=== PATIENT | male | born 1990 | race Caucasian/White ===

== ENCOUNTER → 2018-06-21 10:17 | Outpatient (CLI) | payer OTHER, SELFPAY ==
[2018-06-21 11:34] LABS: Add Manual Diff / Slide Review NO; Basophils Absolute Auto 0 /uL (0-100); Basophils Percent Auto 0.7 % (0-2); Eosinophils Absolute Auto 200 /uL (0-450); Eosinophils Percent Auto 3.3 % (2-4); Hematocrit 47.7 % (41-53); Hemoglobin 16.1 g/dL (13.5-17.5); Lymphocytes Absolute Auto 2300 /uL (1100-4500); Lymphocytes Percent Auto 47.2 % (25-40); Mean Corpuscular HGB Conc 33.8 % (30-36); Mean Corpuscular Hemoglobin 29.5 PG (26-34); Mean Corpuscular Volume 87.3 fL (80-100); Monocytes Absolute Auto 400 /uL (0-900); Monocytes Percent Auto 9.3 % (3-14); Neutrophils Absolute Auto 1900 /uL (1500-7000); Neutrophils Percent Auto 39.5 % (50-75); Red Blood Cell Count 5.47 X10^6/uL (4.5-5.9); Red Cell Distribution Width 13.7 % (11.6-14.8); White Blood Cell Count 4.8 X10^3/uL (4.5-11.0)
[2018-06-21 11:53] LABS: Platelet Count 44 X10^3/uL (150-400)
[2018-06-21 12:12] LABS: BUN Creatinine Ratio 15.6 (6-22); Blood Urea Nitrogen 14 mg/dL (9-20); Calcium 9.6 mg/dL (8.4-10.2); Carbon Dioxide 29 mmol/L (22-32); Chloride 103 mmol/L (98-107); Estimated Glomerular Filt Rate > 60.0 mL/min (>60); Glucose 85 mg/dL (70-100); HEMOLYSIS 46 (0-50); Magnesium 2.3 mg/dL (1.6-2.3); Sodium 143 mmol/L (137-145)
[2018-06-21 12:37] LABS: TSH w/ Reflex to FT4 1.29 uIU/mL (0.47-4.68)
[2018-06-21 12:44] LABS: Alanine Aminotransferase 33 IU/L (21-72); Albumin 5.1 g/dL (3.5-5.0); Albumin Globulin Ratio 1.5 (1.0-2.8); Alkaline Phosphatase 49 U/L (38-126); Aspartate Aminotransferase 27 IU/L (17-59); BUN Creatinine Ratio 15.6 (6-22); Blood Urea Nitrogen 14 mg/dL (9-20); Calcium 9.6 mg/dL (8.4-10.2); Carbon Dioxide 27 mmol/L (22-32); Chloride 103 mmol/L (98-107); Estimated Glomerular Filt Rate > 60.0 mL/min (>60); Globulin 3.3 g/dL (1.7-4.1); Glucose 84 mg/dL (70-100); HEMOLYSIS 45 (0-50); Potassium 5.1 mmol/L (3.4-5.1); Sodium 142 mmol/L (137-145); Total Protein 8.4 g/dL (6.3-8.2)
== END ==
PROVIDERS: PCP Family Medicine; Visit Provider Registered Nurse
DX: R00.2 Palpitations (principal)
CPT/HCPCS: 36415; 80048; 80053; 83735; 84443; 85025

== ENCOUNTER → 2018-06-26 17:04 | Outpatient (CLI) | payer OTHER, SELFPAY ==
[2018-06-26 18:03] LABS: Add Manual Diff / Slide Review NO; Basophils Absolute Auto 0 /uL (0-100); Basophils Percent Auto 0.5 % (0-2); Eosinophils Absolute Auto 200 /uL (0-450); Eosinophils Percent Auto 2.6 % (2-4); Hematocrit 42.3 % (41-53); Hemoglobin 14.4 g/dL (13.5-17.5); Lymphocytes Absolute Auto 2400 /uL (1100-4500); Lymphocytes Percent Auto 37.5 % (25-40); Mean Corpuscular HGB Conc 34.1 % (30-36); Mean Corpuscular Hemoglobin 29.7 PG (26-34); Mean Corpuscular Volume 87.1 fL (80-100); Monocytes Absolute Auto 600 /uL (0-900); Monocytes Percent Auto 8.9 % (3-14); Neutrophils Absolute Auto 3200 /uL (1500-7000); Neutrophils Percent Auto 50.5 % (50-75); Platelet Count 223 X10^3/uL (150-400); Red Blood Cell Count 4.85 X10^6/uL (4.5-5.9); Red Cell Distribution Width 13.7 % (11.6-14.8); White Blood Cell Count 6.3 X10^3/uL (4.5-11.0)
== END ==
PROVIDERS: PCP Family Medicine; Visit Provider Registered Nurse
DX: D69.6 Thrombocytopenia, unspecified (principal)
CPT/HCPCS: 36415; 85025

== ENCOUNTER → 2018-07-01 09:32 | Outpatient (CLI) | payer OTHER, SELFPAY ==
--- NOTE | 2018-07-17 10:48 | P.HOLT.S_ITS ---
Life Skills Teacher Report Referral & Results Date Patient Seen: 07/01/18 Requesting provider: Meenu Cooper Indication: Palpitations Duration of monitoring (days): 10 Diary information: Patient had no diary entries recorded There 14 patient triggered events associated with sinus rhythm, PVCs, ventricular trigeminy, and a short run of ventricular tachycardia Data: Minimum heart rate was 39 beats per minute at 04:29 on 07/05/2018 Maximum sinus heart rate was 160 beats per minute at 17:40 on 07/03/2018 Maximum overall heart rate was 171 beats per minute at 17:11 on 07/02/2018 during a 4 beat run of ventricular tachycardia 1% of identified beats were PVCs including a 7.2nd run of ventricular trigeminy. Less than 1% of identified beats were supraventricular ectopic in origin The patient only had the single 4 beat run of VT Impression: This study seems to show patient's reported symptoms are more likely than not associated with ventricular dysrhythmias as above. Clinical correlation suggested
== END ==
PROVIDERS: PCP Family Medicine; Visit Provider Registered Nurse
DX: R00.2 Palpitations (principal)
CPT/HCPCS: 0296T; 0298T

== ENCOUNTER → 2018-07-02 09:45 | Outpatient (CLI) | payer OTHER, SELFPAY ==
--- NOTE | 2018-07-02 09:46 | DI.US.S_ITS ---
PROCEDURE: US SCROTUM INDICATIONS: testicular pain TECHNIQUE: Real-time scanning was performed of the scrotum and testicles, with image documentation. Color and pulse Doppler interrogation was performed of both testicles. COMPARISON: None. FINDINGS: Right: Testicle is normal in size at 2.6 x 3.3 x 4.9 cm, and homogenous in echotexture. Epididymis is normal in overall size and morphology. No hydrocele or varicoceles. Overlying scrotal skin is normal in thickness. Note is made of a right epididymal cyst measuring up to 1.1 cm. Left: Testicle is normal in size at 2.3 x 3.6 x 5.3 cm, and homogeneous in echotexture. Epididymis is normal in overall size and morphology. No hydrocele or varicoceles. Overlying scrotal skin is normal in thickness. The left epididymis is asymmetrically prominently thickened at 7.5 cm with hyperemia and heterogeneity consistent with epididymitis. Doppler: Color and pulse Doppler demonstrate normal and symmetric arterial flow in both testicles. IMPRESSION: Left epididymitis, with hyperemia and heterogeneity but no sign of orchitis bilaterally or underlying testicular neoplasm. No hydrocele is found. Dictated by: Wally El M.D. on 07/02/2018 at 11:08 Approved by: Wally El M.D. on 07/02/2018 at 11:09
== END ==
PROVIDERS: PCP Family Medicine; Visit Provider Physician Assistant
DX: N50.819 Testicular pain, unspecified (principal); N45.1 Epididymitis; R68.89 Other general symptoms and signs
CPT/HCPCS: 76870

== ENCOUNTER → 2018-10-29 13:38 | Outpatient (CLI) | payer OTHER, SELFPAY | PROVIDERS: PCP Family Medicine; Visit Provider Physician Assistant | DX: J02.9 Acute pharyngitis, unspecified (principal) | CPT/HCPCS: 87070 ==

== ENCOUNTER → 2019-01-27 08:04 | Outpatient (CLI) | payer OTHER, SELFPAY ==
--- NOTE | 2019-01-27 08:06 | DI.ECHO.S_ITS ---
[place] [facility]---------+ [facility] +---------+ : : [address] : : : : [id number] : : : : Phone: [phone]+ Echocardiogram Report + + :Name: BRANDEN REYNOLDS Study Date: 01/27/2019 Height: 71 in : :[facility] Weight: 160 lb : : Gender: Male BSA: 1.9 m2 : :: 1990 Age: 28 yrs BP: 118/76 mmHg: :Reason For Study: PALPITATIONS : : Performed By: [facility] Staff : :Referring: LISSY MILLER : + + Interpretation Summary The left ventricle is normal in size. Left ventricular systolic function is normal without focal wall motion abnormalities. The ejection fraction is estimated to be 55-60%. Diastolic parameters suggest probable normal left ventricular diastolic function and normal filling pressures. The right ventricle is normal in size and function. Pulmonary artery pressures cannot be estimated because of the lack of a measurable TR jet velocity. The left atrial size is normal. Right atrial size is normal. There is no significant valvular heart disease. The aortic root is normal size. Procedure: A two-dimensional transthoracic echocardiogram with color flow and Doppler was performed. The study quality was technically good. There is no prior echocardiogram noted for this patient. The patient was in normal sinus rhythm during the exam. Left Ventricle: The left ventricle is normal in size. There is normal left ventricular wall thickness. Left ventricular systolic function is normal without focal wall motion abnormalities. The ejection fraction is estimated to be 55-60%. Diastolic parameters suggest probable normal left ventricular diastolic function and normal filling pressures. Right Ventricle: The right ventricle is normal in size and function. Atria: The left atrial size is normal. Right atrial size is normal. The interatrial septum is intact with no evidence for an atrial septal defect. Mitral Valve: The mitral valve is normal in structure and function. There is no mitral regurgitation noted. Aortic Valve: The aortic valve is trileaflet. The aortic valve opens well. No aortic regurgitation is present. Tricuspid Valve: The tricuspid valve is normal in structure and function. There is trace tricuspid regurgitation. Pulmonary artery pressures cannot be estimated because of the lack of a measurable TR jet velocity. Pulmonic Valve: The pulmonic valve is normal in structure and function. There is trace pulmonic regurgitation. There is no significant valvular heart disease. Great Vessels: The aortic root is normal size. The dimensions of the ascending aorta are normal. The pulmonary artery is normal size. The IVC is dilated (diameter is greater than 2.1 cm) and it collapses less than 50% with a sniff. This suggests a high right atrial pressure of 15 mm Hg. Pericardium/ Pleura There is no pericardial effusion. There is no pleural effusion. MMode/2D Measurements & Calculations LVIDd: 5.2 cm LVOT diam: 2.2 cm LVIDs: 3.7 cm Ao root diam: 2.8 cm FS: 29.5 % EPSS: 0.48 cm IVSd: 0.91 cm LVPWd: 0.82 cm LV gagnon. diameter/BSA (cm/m^2): 2.7 LV sys. diameter/BSA (cm/m^2): 1.9 LA A2 area: 17.3 cm2 RA long axis: 3.9 cm LA A4 area: 16.1 cm2 RA area: 13.6 cm2 LA length (vol): 4.8 cm RA vol: 39.7 ml LA vol: 49.6 ml RA : 20.7 ml/m2 LA vol index: 25.9 ml/m2 IVC diam: 2.8 cm TAPSE: 2.5 cm Doppler Measurements & Calculations Ao V2 max: 109.9 cm/sec LVOT Max Seamus: 86.3 cm/sec Ao V2 mean: 75.4 cm/sec LV V1 max P.0 mmHg Ao max P.8 mmHg LV V1 VTI: 20.2 cm Ao mean P.6 mmHg EPIFANIO(I,D): 3.1 cm2 Ao V2 VTI: 25.5 cm EPIFANIO(V,D): 3.0 cm2 sev ratio: 0.79 EPIFANIO indexed to BSA (cm^2/m^2): 1.6 MV E max seamus: 57.5 cm/sec TR max seamus: 147.7 cm/sec MV A max seamus: 35.3 cm/sec TR max P.7 mmHg MV E/A: 1.6 PA V2 max: 79.2 cm/sec Med Peak E' Seamus: 14.7 cm/sec PA V2 mean: 58.8 cm/sec E/E' med: 3.9 PA mean P.6 mmHg Lat Peak E' Seamus: 13.2 cm/sec PA Accel Time: 0.17 sec E/E' lat: 4.4 E/e' average: 4.1 MV dec time: 0.27 sec SV([facility]): 78.3 ml Reading Physician:12:23 PM
== END ==
PROVIDERS: Family Provider Family Medicine; PCP Family Medicine; Visit Provider Family Medicine
DX: R00.2 Palpitations (principal)
CPT/HCPCS: 93306

== ENCOUNTER 2020-03-30 15:00 | Outpatient (RCR) | payer OTHER, MEDICAID, SELFPAY ==
--- NOTE | 2020-01-12 17:35 | PT.OIE ---
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) Muscle weakness (generalized) (01/12/20) Past Medical History (Last Updated 12/31/19 @ 16:13 by MARISA Samuel) Acne (Chronic ~2003) Right shoulder pain (Acute) Past Surgical History (Last Reviewed 08/09/18 @ 17:00 by Devika Yepez DO) Anesthesia (Resolved) Pilonidal cyst (Resolved ~2005) Visit Care Team Role Provider Type Devika Yepez DO Primary Care Provider Physician Specialty: [facility] Address: [address] [place] [address] Email: [email or web address] Attending Provider Advanced Latent Fingerprint Examiner Referring Provider Specialty: [facility] Address: [address] [place] [address] Email: [email or web address] Physical Therapy Initial Evaluation PT-OP-A Visit Information Start: 01/08/20 17:12 Freq: Status: Active Protocol: Document 01/12/20 09:05 LRN (Rec: 01/12/20 09:53 N [id number]) Out-Patient Physical Therapy Visit Information Visit Information Visit Type Initial Evaluation Visit Start Time 09:05 Visit Stop Time 09:52 Total Visit Minutes 47 Visit Number 1 Evaluation Information Evaluation Date 01/12/20 Precautions Precautions None PT-OP-B Current Condition Start: 01/08/20 17:12 Freq: Status: Active Protocol: Document 01/12/20 09:05 LRN (Rec: 01/12/20 09:53 [facility] [id number]) Current Condition History of Current Condition Onset Date 6 months ago Current Complaints R shoulder sharp pain with certain movements. History of Current Condition R handed. Woke with R shoulder pain. Has worsened a little for the past few months . Has sharp pain with certain movements and positions of the arms (out to side, and AB upward movement). Had done nothing out of ordinary. Was doing workout that he did at a gym at home but didn't do warm ups. Denies any history of neck or R shoulder injury. Prior Treatments and Tests None Future Testing and Treatments Planned No recheck visit with Arianne Redmond. Developmental History Developmental History Push ups, Pull ups in doorway, without warm up since May. At gym would do the same but a warm up before the weights ( sit in sauna and stretch), then eliptical work out 10'. Treatment Goals Patient/Caregiver Goals Pt goal is to get a routine of ex and strengthening to fix the shoulder. Prior Functional Status Baseline Function- ADL's Independent Baseline Function- Mobility Independent Baseline Function- Other Sometimes woke with stiffness neck/shoulder but nothing lasting. Current Functional Impairments (Reported) Functional Limitations- ADL's Removing T-Shirts, putting dishes away, lifting smallest objects, scratching behind back, Can't lie on the R side at night (can sleep throught the night). Personal Factors Other Personal Factors That May Effect Self exercising at home. Therapy/Recovery PT-OP-C Subjective Start: 01/08/20 17:12 Freq: Status: Active Protocol: Document 01/12/20 09:05 LRN (Rec: 01/12/20 09:53 LR [id number]) Patient Questionnaires Quick Dash- Upper Extremity Quick Dash UE Score 25 OP-PT Pain Assessment Pain Assessment Grid Paper Pain Assessment Grid Completed Yes Location R shoulder Pain Location Details R shoulder Intensity 6 Scale Used Numeric (0 - 10) Description Sharp Frequency Intermittent Pain Alleviating Factors None PT-OP-E Functional Tests Start: 01/08/20 17:12 Freq: Status: Active Protocol: Document 01/12/20 09:05 LRN (Rec: 01/12/20 09:53 LRN [id number]) Functional Tests Robertey's Scratch Test Action 2- Right 5 PT-OP-H Neuro Start: 01/08/20 17:12 Freq: Status: Active Protocol: Document 01/12/20 09:05 LRN (Rec: 01/13/20 17:21 LRN [id number]) Sensation Evaluation Gross Sensation Gross Sensation WNL PT-OP-J Posture/Palpation/Skin Start: 01/08/20 17:12 Freq: Status: Active Protocol: Document 01/12/20 09:05 LRN (Rec: 01/13/20 17:21 LRN [id number]) Posture Evaluation Position Standing Evaluation View Posterior, Anterior, Lateral Head/C-Spine Posture Side Bent Right T-Spine Posture Flexible Scoliosis on (L), Increased Kyphosis Scapula Posture (R) Retracted,(R) Depressed PT-OP-K Range of Motion Start: 01/08/20 17:12 Freq: Status: Active Protocol: Document 01/12/20 09:05 LRN (Rec: 01/13/20 17:21 LRN [id number]) Cervical Spine Range of Motion Cervical Spine Active Percentage Testing Position Sitting Comments Pt active mobility is normal. Passive sidebend left is decreased 20%. Shoulder Goniometric Range of Motion Shoulder Left Active Shoulder ROM WFL Yes Testing Position Sitting Flexion 180 Abduction 180 Internal Rotation Behind Back (text) T4 Comments Reaching behind back - T6 Right Active Shoulder ROM WFL No Flexion 180 Extension 85 Internal Rotation Behind Back (text) T8 Comments Reaching behind back - T3 PT-OP-L Special Tests Start: 01/08/20 17:12 Freq: Status: Active Protocol: Document 01/12/20 09:05 LRN (Rec: 01/13/20 17:21 LRN [id number]) Special Tests Cervical Spine Special Tests Vertebral Artery Test Results Negative bilaterally Traction Test Results Negative Foraminal Compression Test Results Negative Shoulder Special Tests IR/Horizontal ADD Impingement Test Results - right Comments No significant R shoulder pain Luke Jhony Impingement Test Results + right Comments R shoulder pain Empty Can Test Results + right Comments Subacromial pain Elevation Impingement Test Results + right Comments Subacromial pain PT-OP-M Strength Start: 01/08/20 17:12 Freq: Status: Active Protocol: Document 01/12/20 09:05 LRN (Rec: 01/13/20 17:21 LRN [id number]) Cervical Spine Strength Cervical Spine Manual Muscle Testing Comments Generally 5/5. Shoulder Strength Shoulder Manual Muscle Testing Left Comments Generally 5/5. Right Flexion 5 Normal Extension 5 Normal Abduction (C5) 2+ Poor+ External Rotation 4 Good Internal Rotation 3+ Fair+ PT-OP-Q Treatments Start: 01/08/20 17:12 Freq: Status: Active Protocol: Document 01/12/20 09:05 LRN (Rec: 01/12/20 09:53 LRN [id number]) Self-Care/Home Management Treatment Education Patient Education Pain Management Other Education Educated pt in pain management with use of ice and discussed use of heat for warm up prior to exercising. Discussed results of evaluation and plan of care agreeable to patient. Pt is not sure how long he wants to continue therapy but is agreeable to at least 8 visits . PT-OP-T Assessment and Plan Start: 01/08/20 17:12 Freq: Status: Active Protocol: Document 01/12/20 09:05 LRN (Rec: 01/12/20 09:53 LRN [id number]) Physical Therapy Assessment Rehab Potential Rehabilitation Potential Excellent Evaluation Complexity Number of Personal Factors/Comorbidities 0 Number of Body Systems Impaired 4 or More Clinical Presentation at Evaluation Evolving Impairments Impairments Activity Tolerance,Pain, Posture,ROM,Soft Tissue Mobility,Strength Goals Three Impairment Decreased R shoulder ROM (AROM : sitting AB 85 deg's;PROM supine ER 45 deg ) Short Term Goal (STG) Improve R shoulder AROM with pt able to put dishes away with mild discomfort. STG Duration 02/02/20 Group Home Goal (LTG) Improve R shoulder PROM (to supine 70 deg's and IR reaching T6 without pain) with pt able to remove his T- shirts and scratch behind his back with mild difficulty. LTG Duration 02/08/21 Two Impairment Decreased R shoulder strength pain. Short Term Goal (STG) Improve R shoulder strength 1/ 2 grade, with pt able to lift small objects without pain. STG Duration 01/26/20 Group Home Goal (LTG) Improve R shoulder strength 1 grade with pt able to lie on the R side at night. Removing T-Shirts, putting dishes away,, scratching behind back LTG Duration 02/08/21 One Impairment Pt lacks appropriate self care HEP Short Term Goal (STG) Pt will be independent in a self care HEP. STG Duration 01/19/20 Group Home Goal (LTG) Pt will be independent in a self care progressive HEP of R shoulder/scapular stabilization and core strengthening exercises. LTG Duration 04/11/20 Assessment Summary Assessment Pt presents with signs and symptoms of R shoulder impingement syndrome. He is tender and tight in his R supraspinatus and upper trapezius with weakness of his rotator cuff muscles and most noteably with shoulder AB & IR. 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 Pt has decreased R shoulder mobility and strength limiting his functional ability of reaching/lifting. Physical Therapy Plan Frequency and Duration Frequency of Treatment 2x/Week Plan of Care Start Date 01/12/20 Plan of Care End Date 04/11/20 Therapeutic Interventions Therapeutic Interventions Home Exercise Program,Joint Mobilizations,Manual Therapy, Neuromuscular Re-education, Patient/Caregiver Education, Self-Care/Home Management,Soft Tissue Mobilization,Taping, Therapeutic Exercises Modalities Cold Pack/Ice Massage, Ultrasound Next Visit Focus/Plan Next Note Type Treatment Note Next Visit Plan Focus treatment on a self care HEP and decreasing his pain with reaching/lifting. Once pt is on a HEP discuss his needs for continuation to progress towards his prior level of function. Start with warm up of ex (UBE at shoulder height or Biodex), f/ b painfree stretch to R shoulder and rotator cuff strengthening with progressive issuance of HEP. Strengthening scapular stabilizers.
--- NOTE | 2020-01-12 17:37 | PT.OPPOC ---
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) Muscle weakness (generalized) (01/12/20) Visit Care Team Role Provider Type Devika Yepez DO Primary Care Provider Physician Specialty: [facility] Address: [address] [place] [address], [place], [address] Email: [email or web address] MARISA Samuel Attending Provider Advanced Resin Filterer Referring Provider Specialty: [facility] Address: [address] [place] [address], [id number] Email: [email or web address] Plan Of Care PT-OP-T Assessment and Plan Start: 01/08/20 17:12 Freq: Status: Active Protocol: Document 01/12/20 09:05 LRN (Rec: 01/12/20 09:53 LRN [id number]) Physical Therapy Assessment Rehab Potential Rehabilitation Potential Excellent Evaluation Complexity Number of Personal Factors/Comorbidities 0 Number of Body Systems Impaired 4 or More Clinical Presentation at Evaluation Evolving Impairments Impairments Activity Tolerance,Pain, Posture,ROM,Soft Tissue Mobility,Strength Goals Three Impairment Decreased R shoulder ROM (AROM : sitting AB 85 deg's;PROM supine ER 45 deg ) Short Term Goal (STG) Improve R shoulder AROM with pt able to put dishes away with mild discomfort. STG Duration 02/02/20 [facility] Goal (LTG) Improve R shoulder PROM (to supine 70 deg's and IR reaching T6 without pain) with pt able to remove his T- shirts and scratch behind his back with mild difficulty. LTG Duration 02/08/21 Two Impairment Decreased R shoulder strength pain. Short Term Goal (STG) Improve R shoulder strength 1/ 2 grade, with pt able to lift small objects without pain. STG Duration 01/26/20 [facility] Goal (LTG) Improve R shoulder strength 1 grade with pt able to lie on the R side at night. Removing T-Shirts, putting dishes away,, scratching behind back LTG Duration 02/08/21 One Impairment Pt lacks appropriate self care HEP Short Term Goal (STG) Pt will be independent in a self care HEP. STG Duration 01/19/20 [facility] Goal (LTG) Pt will be independent in a self care progressive HEP of R shoulder/scapular stabilization and core strengthening exercises. LTG Duration 04/11/20 Assessment Summary Assessment Pt presents with signs and symptoms of R shoulder impingement syndrome. He is tender and tight in his R supraspinatus and upper trapezius with weakness of his rotator cuff muscles and most noteably with shoulder AB & IR. 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 Pt has decreased R shoulder mobility and strength limiting his functional ability of reaching/lifting. Physical Therapy Plan Frequency and Duration Frequency of Treatment 2x/Week Plan of Care Start Date 01/12/20 Plan of Care End Date 04/11/20 Therapeutic Interventions Therapeutic Interventions Home Exercise Program,Joint Mobilizations,Manual Therapy, Neuromuscular Re-education, Patient/Caregiver Education, Self-Care/Home Management,Soft Tissue Mobilization,Taping, Therapeutic Exercises Modalities Cold Pack/Ice Massage, Ultrasound Next Visit Focus/Plan Next Note Type Treatment Note Next Visit Plan Focus treatment on a self care HEP and decreasing his pain with reaching/lifting. Once pt is on a HEP discuss his needs for continuation to progress towards his prior level of function. Start with warm up of ex (UBE at shoulder height or Biodex), f/ b painfree stretch to R shoulder and rotator cuff strengthening with progressive issuance of HEP. Strengthening scapular stabilizers. Plan of Care Dates Plan of Care Start Date 01/12/20 Plan of Care End Date 04/11/20 Electronically Signed by: Lexy Albert, PT 01/13/20 [id number] Please Sign and Return: I have reviewed this Plan of Care and certify that the skilled therapy services above are required to meet the patient?s needs. Physician Signature Date Printed Name and Credentials Clinical Instructor Signature Printed Name and Credentials
--- NOTE | 2020-01-15 12:24 | PT-OP ANOTE ---
Pt did not show for today's appt, when called pt stated did not get a message to come in. Confirmed next appt scheduled with BLAINE Leonard and is doing well with exercises given durign initial exam and just received and will use the heating pad they discussed for support until next appt.
--- NOTE | 2020-01-19 17:00 | PT.OTN ---
Current Diagnoses Pain in right shoulder (01/19/20) Postural kyphosis, thoracic region (01/19/20) Muscle weakness (generalized) (01/19/20) Physical Therapy Treatment Note PT-OP-A Visit Information Start: 01/08/20 17:12 Freq: Status: Active Protocol: Document 01/19/20 09:05 LRN (Rec: 01/19/20 09:51 LRN [id number]) Out-Patient Physical Therapy Visit Information Visit Information Visit Type Treatment Note Visit Start Time 09:05 Visit Stop Time 09:57 Total Visit Minutes 52 Visit Number 2 Evaluation Information Evaluation Date 01/12/20 Precautions Precautions None PT-OP-B Current Condition Start: 01/08/20 17:12 Freq: Status: Active Protocol: Document 01/12/20 09:05 LRN (Rec: 01/12/20 09:53 LRN [id number]) Current Condition History of Current Condition Onset Date 6 months ago Current Complaints R shoulder sharp pain with certain movements. History of Current Condition R handed. Woke with R shoulder pain. Has worsened a little for the past few months . Has sharp pain with certain movements and positions of the arms (out to side, and AB upward movement). Had done nothing out of ordinary. Was doing workout that he did at a gym at home but didn't do warm ups. Denies any history of neck or R shoulder injury. Prior Treatments and Tests None Future Testing and Treatments Planned No recheck visit with Arianne Redmond. Developmental History Developmental History Push ups, Pull ups in doorway, without warm up since May. At gym would do the same but a warm up before the weights ( sit in sauna and stretch), then eliptical work out 10'. Treatment Goals Patient/Caregiver Goals Pt goal is to get a routine of ex and strengthening to fix the shoulder. Prior Functional Status Baseline Function- ADL's Independent Baseline Function- Mobility Independent Baseline Function- Other Sometimes woke with stiffness neck/shoulder but nothing lasting. Current Functional Impairments (Reported) Functional Limitations- ADL's Removing T-Shirts, putting dishes away, lifting smallest objects, scratching behind back, Can't lie on the R side at night (can sleep throught the night). Personal Factors Other Personal Factors That May Effect Self exercising at home. Therapy/Recovery PT-OP-C Subjective Start: 01/08/20 17:12 Freq: Status: Active Protocol: Document 01/19/20 09:05 LRN (Rec: 01/19/20 09:51 LRN [id number]) OP-PT Subjective Patient Comments Patient Comments Same. Has heating pad. Feels better with heat. Hasn't used ice. Not exercising. PT-OP-E Functional Tests Start: 01/08/20 17:12 Freq: Status: Active Protocol: Document 01/12/20 09:05 LRN (Rec: 01/12/20 09:53 LRN [id number]) Functional Tests Apley's Scratch Test Action 2- Right 5 PT-OP-H Neuro Start: 01/08/20 17:12 Freq: Status: Active Protocol: Document 01/12/20 09:05 LRN (Rec: 01/13/20 17:21 LRN [id number]) Sensation Evaluation Gross Sensation Gross Sensation WNL PT-OP-J Posture/Palpation/Skin Start: 01/08/20 17:12 Freq: Status: Active Protocol: Document 01/12/20 09:05 LRN (Rec: 01/13/20 17:21 LRN [id number]) Posture Evaluation Position Standing Evaluation View Posterior, Anterior, Lateral Head/C-Spine Posture Side Bent Right T-Spine Posture Flexible Scoliosis on (L), Increased Kyphosis Scapula Posture (R) Retracted,(R) Depressed PT-OP-K Range of Motion Start: 01/08/20 17:12 Freq: Status: Active Protocol: Document 01/12/20 09:05 LRN (Rec: 01/13/20 17:21 LRN [id number]) Cervical Spine Range of Motion Cervical Spine Active Percentage Testing Position Sitting Comments Pt active mobility is normal. Passive sidebend left is decreased 20%. Shoulder Goniometric Range of Motion Shoulder Left Active Shoulder ROM WFL Yes Testing Position Sitting Flexion 180 Abduction 180 Internal Rotation Behind Back (text) T4 Comments Reaching behind back - T6 Right Active Shoulder ROM WFL No Flexion 180 Extension 85 Internal Rotation Behind Back (text) T8 Comments Reaching behind back - T3 PT-OP-L Special Tests Start: 01/08/20 17:12 Freq: Status: Active Protocol: Document 01/12/20 09:05 LRN (Rec: 01/13/20 17:21 LRN [id number]) Special Tests Cervical Spine Special Tests Vertebral Artery Test Results Negative bilaterally Traction Test Results Negative Foraminal Compression Test Results Negative Shoulder Special Tests IR/Horizontal ADD Impingement Test Results - right Comments No significant R shoulder pain Luke Jhony Impingement Test Results + right Comments R shoulder pain Empty Can Test Results + right Comments Subacromial pain Elevation Impingement Test Results + right Comments Subacromial pain PT-OP-M Strength Start: 01/08/20 17:12 Freq: Status: Active Protocol: Document 01/12/20 09:05 LRN (Rec: 01/13/20 17:21 LRN [id number]) Cervical Spine Strength Cervical Spine Manual Muscle Testing Comments Generally 5/5. Shoulder Strength Shoulder Manual Muscle Testing Left Comments Generally 5/5. Right Flexion 5 Normal Extension 5 Normal Abduction (C5) 2+ Poor+ External Rotation 4 Good Internal Rotation 3+ Fair+ PT-OP-Q Treatments Start: 01/08/20 17:12 Freq: Status: Active Protocol: Document 01/19/20 09:05 LRN (Rec: 01/19/20 09:51 LRN [id number]) Cardio Equipment Upper Body Ergometer (UBE) Duration (Minutes) 6 RPM 90 Seat Position 9 Height 2 Other Discomfort fwd, no pain bkwd. Therapeutic Exercises Supine Exercises Shoulder ER Supine Exercise Name Shoulder ER stretch Side right Comments Stretch in various ER angles with forearm sup/pron @ ea location Shoulder Flex Supine Exercise Name Cane stretch Reps/Minutes 10 hold x 6 Lat Pull Down Supine Exercise Name Lat Pull Down Side bilateral Equipment Used Cane/Lev 2 TB Reps/Minutes 10x Sidelying Exercises Shoulder ER Sidelying Exercise Name Shoulder ER Side right Equipment Used 1# Reps/Minutes 10x Shoulder IR Sidelying Exercise Name Shoulder IR Side right Equipment Used 1# Reps/Minutes 10x Standing Exercises Shoulder ER Standing Exercise Name Shoulder ER Equipment Used Lev 1 Reps/Minutes 10x Lat Pull down Standing Exercise Name Lat Pull down Equipment Used Lev 2 Reps/Minutes 10x Scap retract Standing Exercise Name Row w/scapular depressioin Equipment Used Lev 2 Reps/Minutes 15x Shoulder IR Standing Exercise Name Shoulder IR Side right Equipment Used Lev 2 Reps/Minutes 8x Manual Therapy Treatment Soft Tissue Mobilization R Cervical Paraspinals Body Location C2-C4 Mobilization Type Strumming,Sustained Pressure Intensity/Depth Moderate Supraspinatus Body Location R Supraspinatus Mobilization Type Trigger Point Release Comments Very tender with fair results. Many active trigger points, also in area of 1st rib. Self-Care/Home Management Treatment Education Patient Education Home Exercise Program Other Education Verbal I/S in self trigger point treatment to R UT. Activities Self-Care/Home Management Activities Issued Lev 2 TB. I/S pt in shoulder IR/ER/row/lat pull down. Pt to use mirror for visual feedback of scapular depression. PT-OP-R Modalities Start: 01/08/20 17:12 Freq: Status: Active Protocol: Document 01/19/20 09:05 LRN (Rec: 01/19/20 16:58 LRN [id number]) Hot Pack/Cold Pack Treatment Cold Pack Location R shoulder Patient Position Hooklying Treatment Duration (minutes) 10 PT-OP-T Assessment and Plan Start: 01/08/20 17:12 Freq: Status: Active Protocol: Document 01/19/20 09:05 LRN (Rec: 01/19/20 09:51 LRN [id number]) Physical Therapy Assessment Goals Three Impairment Decreased R shoulder ROM (AROM : sitting AB 85 deg's;PROM supine ER 45 deg ) Short Term Goal (STG) Improve R shoulder AROM with pt able to put dishes away with mild discomfort. STG Duration 02/02/20 Charter Coordinator Goal (LTG) Improve R shoulder PROM (to supine 70 deg's and IR reaching T6 without pain) with pt able to remove his T- shirts and scratch behind his back with mild difficulty. LTG Duration 02/08/21 Two Impairment Decreased R shoulder strength pain. Short Term Goal (STG) Improve R shoulder strength 1/ 2 grade, with pt able to lift small objects without pain. STG Duration 01/26/20 Charter Coordinator Goal (LTG) Improve R shoulder strength 1 grade with pt able to lie on the R side at night. Removing T-Shirts, putting dishes away,, scratching behind back LTG Duration 02/08/21 One Impairment Pt lacks appropriate self care HEP Short Term Goal (STG) Pt will be independent in a self care HEP. STG Duration 01/19/20 (01/19/20: Progressing) Nursing Home Goal (LTG) Pt will be independent in a self care progressive HEP of R shoulder/scapular stabilization and core strengthening exercises. LTG Duration 04/11/20 Assessment Summary Assessment Fair tolerance to ex. Had discomfort with ER. Tender at Supraspinatus with sharp pain at 60-30 deg's ER with rotation of forearm, possibly more supraspinatus involvement than infraspinatus, or nerve related. Humeral head inferior glide pain in the subacromial region might be from Supraspinatus, bursa, nerve. Physical Therapy Plan Frequency and Duration Frequency of Treatment 2x/Week Plan of Care Start Date 01/12/20 Plan of Care End Date 04/11/20 Next Visit Focus/Plan Next Note Type Treatment Note Next Visit Plan Issue HEP handouts (RC ex's and shoulder ROM). Focus treatment on a self care HEP and decreasing his pain with reaching/lifting. Once pt is on a HEP discuss his needs for continuation to progress towards his prior level of function. Start with warm up of ex (UBE at shoulder height or Biodex), f/b painfree stretch to R shoulder and rotator cuff strengthening with progressive issuance of HEP. Strengthening scapular stabilizers.
--- NOTE | 2020-01-23 09:06 | PT.OTN ---
Current Diagnoses Pain in right shoulder (01/23/20) Postural kyphosis, thoracic region (01/23/20) Muscle weakness (generalized) (01/23/20) Physical Therapy Treatment Note PT-OP-A Visit Information Start: 01/08/20 17:12 Freq: Status: Active Protocol: Document 01/23/20 08:18 SP (Rec: 01/23/20 11:49 SP [id number]) Out-Patient Physical Therapy Visit Information Visit Information Visit Type Treatment Note Visit Start Time 08:18 Visit Stop Time 09:06 Total Visit Minutes 48 Visit Number 3 Number of LINOLEUM LAYER Visits 1 PT-OP-B Current Condition Start: 01/08/20 17:12 Freq: Status: Active Protocol: Document 01/12/20 09:05 LRN (Rec: 01/12/20 09:53 LRN [id number]) Current Condition History of Current Condition Onset Date 6 months ago Current Complaints R shoulder sharp pain with certain movements. History of Current Condition R handed. Woke with R shoulder pain. Has worsened a little for the past few months . Has sharp pain with certain movements and positions of the arms (out to side, and AB upward movement). Had done nothing out of ordinary. Was doing workout that he did at a gym at home but didn't do warm ups. Denies any history of neck or R shoulder injury. Prior Treatments and Tests None Future Testing and Treatments Planned No recheck visit with Arianne Redmond. Developmental History Developmental History Push ups, Pull ups in doorway, without warm up since May. At gym would do the same but a warm up before the weights ( sit in sauna and stretch), then eliptical work out 10'. Treatment Goals Patient/Caregiver Goals Pt goal is to get a routine of ex and strengthening to fix the shoulder. Prior Functional Status Baseline Function- ADL's Independent Baseline Function- Mobility Independent Baseline Function- Other Sometimes woke with stiffness neck/shoulder but nothing lasting. Current Functional Impairments (Reported) Functional Limitations- ADL's Removing T-Shirts, putting dishes away, lifting smallest objects, scratching behind back, Can't lie on the R side at night (can sleep throught the night). Personal Factors Other Personal Factors That May Effect Self exercising at home. Therapy/Recovery PT-OP-C Subjective Start: 01/08/20 17:12 Freq: Status: Active Protocol: Document 01/23/20 08:18 SP (Rec: 01/23/20 11:49 SP [id number]) OP-PT Subjective Patient Comments Patient Comments Pt reported doing well with ex, seems to be slow steady improvements, R shld very weak muscles breanna ER and forward raises over head ok but pinching under AC jt during OH out to side still. PT-OP-E Functional Tests Start: 01/08/20 17:12 Freq: Status: Active Protocol: Document 01/12/20 09:05 LRN (Rec: 01/12/20 09:53 LRN [id number]) Functional Tests Apley's Scratch Test Action 2- Right 5 PT-OP-H Neuro Start: 01/08/20 17:12 Freq: Status: Active Protocol: Document 01/12/20 09:05 LRN (Rec: 01/13/20 17:21 LRN [id number]) Sensation Evaluation Gross Sensation Gross Sensation WNL PT-OP-J Posture/Palpation/Skin Start: 01/08/20 17:12 Freq: Status: Active Protocol: Document 01/12/20 09:05 LRN (Rec: 01/13/20 17:21 LRN [id number]) Posture Evaluation Position Standing Evaluation View Posterior, Anterior, Lateral Head/C-Spine Posture Side Bent Right T-Spine Posture Flexible Scoliosis on (L), Increased Kyphosis Scapula Posture (R) Retracted,(R) Depressed PT-OP-K Range of Motion Start: 01/08/20 17:12 Freq: Status: Active Protocol: Document 01/12/20 09:05 LRN (Rec: 01/13/20 17:21 LRN [id number]) Cervical Spine Range of Motion Cervical Spine Active Percentage Testing Position Sitting Comments Pt active mobility is normal. Passive sidebend left is decreased 20%. Shoulder Goniometric Range of Motion Shoulder Left Active Shoulder ROM WFL Yes Testing Position Sitting Flexion 180 Abduction 180 Internal Rotation Behind Back (text) T4 Comments Reaching behind back - T6 Right Active Shoulder ROM WFL No Flexion 180 Extension 85 Internal Rotation Behind Back (text) T8 Comments Reaching behind back - T3 PT-OP-L Special Tests Start: 01/08/20 17:12 Freq: Status: Active Protocol: Document 01/12/20 09:05 LRN (Rec: 01/13/20 17:21 LRN [id number]) Special Tests Cervical Spine Special Tests Vertebral Artery Test Results Negative bilaterally Traction Test Results Negative Foraminal Compression Test Results Negative Shoulder Special Tests IR/Horizontal ADD Impingement Test Results - right Comments No significant R shoulder pain Luke Jhony Impingement Test Results + right Comments R shoulder pain Empty Can Test Results + right Comments Subacromial pain Elevation Impingement Test Results + right Comments Subacromial pain PT-OP-M Strength Start: 01/08/20 17:12 Freq: Status: Active Protocol: Document 01/12/20 09:05 LRN (Rec: 01/13/20 17:21 LRN [id number]) Cervical Spine Strength Cervical Spine Manual Muscle Testing Comments Generally 5/5. Shoulder Strength Shoulder Manual Muscle Testing Left Comments Generally 5/5. Right Flexion 5 Normal Extension 5 Normal Abduction (C5) 2+ Poor+ External Rotation 4 Good Internal Rotation 3+ Fair+ PT-OP-Q Treatments Start: 01/08/20 17:12 Freq: Status: Active Protocol: Document 01/23/20 08:18 SP (Rec: 01/23/20 11:49 SP [id number]) Therapeutic Exercises Sidelying Exercises R shoulder ABD w/ inf glide/ scap stab Sidelying Exercise Name unsteady, challenging Side right Resistance AROM Reps/Minutes x5 Comments cued with manual facilitiation humeral head inf glide, improved scap stab Standing Exercises Shoulder ER Standing Exercise Name Shoulder ER w/ towel roll under arm Equipment Used Lev 1 Reps/Minutes 10x Comments occasional cuing for scap retract/ inf glide humeral head Lat Pull down Standing Exercise Name Lat Pull down Equipment Used Level 3 Reps/Minutes 10x Comments cued ribcage elevation, scap stab concentric/ eccentric directioning Scap retract Standing Exercise Name Row w/scapular depressioin Equipment Used Lev 3 Reps/Minutes 15x Comments cued ribcage elevation, scap stab concentric/ eccentric directioning Shoulder IR Standing Exercise Name Shoulder IR w/ towel roll under arm Side right Equipment Used Lev 2 Reps/Minutes x10 Comments occasional cuing for scap retract/ inf glide humeral head PT-OP-R Modalities Start: 01/08/20 17:12 Freq: Status: Active Protocol: Document 01/19/20 09:05 LRN (Rec: 01/19/20 16:58 LRN [id number]) Hot Pack/Cold Pack Treatment Cold Pack Location R shoulder Patient Position Hooklying Treatment Duration (minutes) 10 PT-OP-T Assessment and Plan Start: 01/08/20 17:12 Freq: Status: Active Protocol: Document 01/23/20 08:18 SP (Rec: 01/23/20 11:49 SP [id number]) Physical Therapy Assessment Goals Three Impairment Decreased R shoulder ROM (AROM : sitting AB 85 deg's;PROM supine ER 45 deg ) Short Term Goal (STG) Improve R shoulder AROM with pt able to put dishes away with mild discomfort. STG Duration 02/02/20 Unit Assembler Goal (LTG) Improve R shoulder PROM (to supine 70 deg's and IR reaching T6 without pain) with pt able to remove his T- shirts and scratch behind his back with mild difficulty. LTG Duration 02/08/21 Two Impairment Decreased R shoulder strength pain. Short Term Goal (STG) Improve R shoulder strength 1/ 2 grade, with pt able to lift small objects without pain. STG Duration 01/26/20 Unit Assembler Goal (LTG) Improve R shoulder strength 1 grade with pt able to lie on the R side at night. Removing T-Shirts, putting dishes away,, scratching behind back LTG Duration 02/08/21 One Impairment Pt lacks appropriate self care HEP Short Term Goal (STG) Pt will be independent in a self care HEP. STG Duration 01/19/20 (01/19/20: Progressing) Custodial Goal (LTG) Pt will be independent in a self care progressive HEP of R shoulder/scapular stabilization and core strengthening exercises. LTG Duration 04/11/20 Assessment Summary Assessment Pt good form post occasional cuing during scap row and lat pull down to allow increased resistanace with good carry over. R shld ER very weak required increase cuing for scap stab and inf glide during concentric/ eccentric directions to allow for decreased subacromial discomfort with good responses . Assessed wall slide/stretch FF OH and ABD but caused discomfort so stopped. L sidelying ABD improved self humeral inf glide corrections initially manual facilitation then able to do himself, gave for home only 5 reps max with proper form. Provided hand outs for all ex today with level bands to use for recall and proper form. Reassess next tx!! Physical Therapy Plan Frequency and Duration Frequency of Treatment 2x/Week Plan of Care Start Date 01/12/20 Plan of Care End Date 04/11/20 Therapeutic Interventions Therapeutic Interventions Home Exercise Program,Joint Mobilizations,Manual Therapy, Neuromuscular Re-education, Patient/Caregiver Education, Self-Care/Home Management,Soft Tissue Mobilization,Taping, Therapeutic Exercises Modalities Cold Pack/Ice Massage, Ultrasound Next Visit Focus/Plan Next Note Type Treatment Note Next Visit Plan Assess response to tx HEP form w/ increase TB resistance. Next tx reassess form and tolerance increased resistance . Maybe assess US end of tx next. Continue per PT POC: Focus treatment on a self care HEP and decreasing his pain with reaching/lifting. Once pt is on a HEP discuss his needs for continuation to progress towards his prior level of function. Continue Start with warm up of ex (UBE at shoulder height or Biodex), f/ b painfree stretch to R shoulder and rotator cuff strengthening with progressive issuance of HEP. Strengthening scapular stabilizers.
--- NOTE | 2020-01-26 12:00 | PT.OTN ---
Current Diagnoses Pain in right shoulder (01/26/20) Postural kyphosis, thoracic region (01/26/20) Muscle weakness (generalized) (01/26/20) Physical Therapy Treatment Note PT-OP-A Visit Information Start: 01/08/20 17:12 Freq: Status: Active Protocol: Document 01/26/20 09:35 LRN (Rec: 01/26/20 10:36 LRN [id number]) Out-Patient Physical Therapy Visit Information Visit Information Visit Type Treatment Note Visit Start Time 09:35 Visit Stop Time 10:23 Total Visit Minutes 48 Visit Number 4 Evaluation Information Evaluation Date 01/12/20 Precautions Precautions None PT-OP-B Current Condition Start: 01/08/20 17:12 Freq: Status: Active Protocol: Document 01/12/20 09:05 LRN (Rec: 01/12/20 09:53 LRN [id number]) Current Condition History of Current Condition Onset Date 6 months ago Current Complaints R shoulder sharp pain with certain movements. History of Current Condition R handed. Woke with R shoulder pain. Has worsened a little for the past few months . Has sharp pain with certain movements and positions of the arms (out to side, and AB upward movement). Had done nothing out of ordinary. Was doing workout that he did at a gym at home but didn't do warm ups. Denies any history of neck or R shoulder injury. Prior Treatments and Tests None Future Testing and Treatments Planned No recheck visit with Arianne Redmond. Developmental History Developmental History Push ups, Pull ups in doorway, without warm up since May. At gym would do the same but a warm up before the weights ( sit in sauna and stretch), then eliptical work out 10'. Treatment Goals Patient/Caregiver Goals Pt goal is to get a routine of ex and strengthening to fix the shoulder. Prior Functional Status Baseline Function- ADL's Independent Baseline Function- Mobility Independent Baseline Function- Other Sometimes woke with stiffness neck/shoulder but nothing lasting. Current Functional Impairments (Reported) Functional Limitations- ADL's Removing T-Shirts, putting dishes away, lifting smallest objects, scratching behind back, Can't lie on the R side at night (can sleep throught the night). Personal Factors Other Personal Factors That May Effect Self exercising at home. Therapy/Recovery PT-OP-C Subjective Start: 01/08/20 17:12 Freq: Status: Active Protocol: Document 01/26/20 09:35 LRN (Rec: 01/26/20 10:36 LRN [id number]) OP-PT Subjective Patient Comments Patient Comments No significant change in painfree ROM. Feels like his shoulder may be getting stronger PT-OP-E Functional Tests Start: 01/08/20 17:12 Freq: Status: Active Protocol: Document 01/12/20 09:05 LRN (Rec: 01/12/20 09:53 LRN [id number]) Functional Tests Apley's Scratch Test Action 2- Right 5 PT-OP-H Neuro Start: 01/08/20 17:12 Freq: Status: Active Protocol: Document 01/12/20 09:05 LRN (Rec: 01/13/20 17:21 LRN [id number]) Sensation Evaluation Gross Sensation Gross Sensation WNL PT-OP-J Posture/Palpation/Skin Start: 01/08/20 17:12 Freq: Status: Active Protocol: Document 01/12/20 09:05 LRN (Rec: 01/13/20 17:21 LRN [id number]) Posture Evaluation Position Standing Evaluation View Posterior, Anterior, Lateral Head/C-Spine Posture Side Bent Right T-Spine Posture Flexible Scoliosis on (L), Increased Kyphosis Scapula Posture (R) Retracted,(R) Depressed PT-OP-K Range of Motion Start: 01/08/20 17:12 Freq: Status: Active Protocol: Document 01/26/20 09:35 LRN (Rec: 01/26/20 10:36 LRN [id number]) Shoulder Goniometric Range of Motion Shoulder Right Passive Testing Position Supine Flexion 180 PT-OP-L Special Tests Start: 01/08/20 17:12 Freq: Status: Active Protocol: Document 01/12/20 09:05 LRN (Rec: 01/13/20 17:21 LRN [id number]) Special Tests Cervical Spine Special Tests Vertebral Artery Test Results Negative bilaterally Traction Test Results Negative Foraminal Compression Test Results Negative Shoulder Special Tests IR/Horizontal ADD Impingement Test Results - right Comments No significant R shoulder pain Luke Jhony Impingement Test Results + right Comments R shoulder pain Empty Can Test Results + right Comments Subacromial pain Elevation Impingement Test Results + right Comments Subacromial pain PT-OP-M Strength Start: 01/08/20 17:12 Freq: Status: Active Protocol: Document 01/12/20 09:05 LRN (Rec: 01/13/20 17:21 LRN [id number]) Cervical Spine Strength Cervical Spine Manual Muscle Testing Comments Generally 5/5. Shoulder Strength Shoulder Manual Muscle Testing Left Comments Generally 5/5. Right Flexion 5 Normal Extension 5 Normal Abduction (C5) 2+ Poor+ External Rotation 4 Good Internal Rotation 3+ Fair+ PT-OP-Q Treatments Start: 01/08/20 17:12 Freq: Status: Active Protocol: Document 01/26/20 09:35 LRN (Rec: 01/26/20 10:36 LRN [id number]) Cardio Equipment Upper Body Ergometer (UBE) Duration (Minutes) 6 RPM 80 Seat Position 9 Height 2 Other Discomfort fwd, no pain bkwd. Therapeutic Exercises Supine Exercises R Shoulder AB Supine Exercise Name AB w/Scapular retraining 70- 120 degs AB range Side right Comments Much cuing needed at scapula and v cuing. Slow movement throughout training Shoulder Flex Supine Exercise Name R Active shoulder flex Side bilateral Equipment Used Cane Comments End-range tight, no pain, extra time for painfree movement and stretch Lat Pull Down Supine Exercise Name Lat Pull Down Side bilateral Equipment Used 3#, cane Reps/Minutes 15x 2 Comments Extra time to determine max tolerance to resisted strengthening. Sidelying Exercises R shoulder ABD w/ inf glide/ scap stab Sidelying Exercise Name Shoulder AB w/scapular retraining Side right Resistance AROM Comments Slow mvmt, cuing w/manual facilitiation humeral head inf glide & scap stab. PT-OP-R Modalities Start: 01/08/20 17:12 Freq: Status: Active Protocol: Document 01/26/20 09:35 LRN (Rec: 01/26/20 10:36 LRN [id number]) Ultrasound Therapy Treatment R subacromial shoulder Treatment Duration (minutes) 8 Patient Position Supine Applicator Size (cm2) 2 Frequency Setting (mHz) 3 Mode Setting Pulsed Duty Cycle 50% Intensity Setting (w/cm2) 1.0 Comments US focus @ Bicepital groove and Supraspinatus attachment at humeral head. PT-OP-T Assessment and Plan Start: 01/08/20 17:12 Freq: Status: Active Protocol: Document 01/26/20 09:35 LRN (Rec: 01/26/20 10:36 LRN [id number]) Physical Therapy Assessment Goals Three Impairment Decreased R shoulder ROM (AROM : sitting AB 85 deg's;PROM supine ER 45 deg ) Short Term Goal (STG) Improve R shoulder AROM with pt able to put dishes away with mild discomfort. STG Duration 02/02/20 Fpc Goal (LTG) Improve R shoulder PROM (to supine 70 deg's and IR reaching T6 without pain) with pt able to remove his T- shirts and scratch behind his back with mild difficulty. LTG Duration 02/08/21 Two Impairment Decreased R shoulder strength pain. Short Term Goal (STG) Improve R shoulder strength 1/ 2 grade, with pt able to lift small objects without pain. STG Duration 01/26/20 Unit Educator Goal (LTG) Improve R shoulder strength 1 grade with pt able to lie on the R side at night. Removing T-Shirts, putting dishes away,, scratching behind back LTG Duration 02/08/21 One Impairment Pt lacks appropriate self care HEP Short Term Goal (STG) Pt will be independent in a self care HEP. STG Duration 01/19/20 (01/19/20: Progressing) Fpc Goal (LTG) Pt will be independent in a self care progressive HEP of R shoulder/scapular stabilization and core strengthening exercises. LTG Duration 04/11/20 Progress Towards Goals Progress Comments R shoulder supine AROM is painfree with tightness at end -range. Assessment Summary Assessment Did not assess form with previously issued HEP, will next treatment. In supine & sidelie, pt moves R arm in AB slowly and cognitively to get proper SHR of R shoulder without pain. He is unsteady but able to move scapula in way to prevent pain (in supine & sidelie). In sitting pt has R shoulder pain at 90 deg' s AB transition towards full flex, partially because he is not rotating his humeral head and probably also because of RC weakness and dysfunctional SHR. Further RC strengthening & scapular/SHR training is needed. Physical Therapy Plan Frequency and Duration Frequency of Treatment 2x/Week Plan of Care Start Date 01/12/20 Plan of Care End Date 04/11/20 Next Visit Focus/Plan Next Note Type Treatment Note Next Visit Plan Note: 3 visits scheduled. Start with teaching of self warm up at home & warm up of ex (UBE at shoulder height or Biodex), f/b painfree stretch to R shoulder and rotator cuff strengthening with progressive issuance of HEP. Strengthening scapular stabilizers. Assess R shoulder AROM sitting, before and after Ultrasound. Assess response to tx HEP form w/ increase TB resistance. Reassess form and tolerance with increased resistance. Assess US response to improved R shoulder ROM at end of tx next. Continue per PT POC: Focus treatment on a self care HEP and decreasing his pain with reaching/lifting. Once pt is on a HEP decrease PT visits or DC to HEP per pt preference.
--- NOTE | 2020-01-30 10:03 | PT.OTN ---
Addendum entered and electronically signed by Vilma Lema, CONCRETE VIBRATOR OPERATOR 01/30/20 10:19: Pt commented interested in WB activities, assess plank next tx (wall, incline bench, floor use over ball) if able to stabilize and painfree. Did discussed during tx today possible if progressed enough in strength. Original Note: Current Diagnoses Pain in right shoulder (01/30/20) Postural kyphosis, thoracic region (01/30/20) Muscle weakness (generalized) (01/30/20) Physical Therapy Treatment Note PT-OP-A Visit Information Start: 01/08/20 17:12 Freq: Status: Active Protocol: Document 01/30/20 09:02 SP (Rec: 01/30/20 10:17 SP [id number]) Out-Patient Physical Therapy Visit Information Visit Information Visit Type Treatment Note Visit Start Time 09:02 Visit Stop Time 10:03 Total Visit Minutes 61 Visit Number 5 Number of CONCRETE VIBRATOR OPERATOR Visits 1 PT-OP-B Current Condition Start: 01/08/20 17:12 Freq: Status: Active Protocol: Document 01/12/20 09:05 LRN (Rec: 01/12/20 09:53 LRN [id number]) Current Condition History of Current Condition Onset Date 6 months ago Current Complaints R shoulder sharp pain with certain movements. History of Current Condition R handed. Woke with R shoulder pain. Has worsened a little for the past few months . Has sharp pain with certain movements and positions of the arms (out to side, and AB upward movement). Had done nothing out of ordinary. Was doing workout that he did at a gym at home but didn't do warm ups. Denies any history of neck or R shoulder injury. Prior Treatments and Tests None Future Testing and Treatments Planned No recheck visit with Arianne Redmond. Developmental History Developmental History Push ups, Pull ups in doorway, without warm up since May. At gym would do the same but a warm up before the weights ( sit in sauna and stretch), then eliptical work out 10'. Treatment Goals Patient/Caregiver Goals Pt goal is to get a routine of ex and strengthening to fix the shoulder. Prior Functional Status Baseline Function- ADL's Independent Baseline Function- Mobility Independent Baseline Function- Other Sometimes woke with stiffness neck/shoulder but nothing lasting. Current Functional Impairments (Reported) Functional Limitations- ADL's Removing T-Shirts, putting dishes away, lifting smallest objects, scratching behind back, Can't lie on the R side at night (can sleep throught the night). Personal Factors Other Personal Factors That May Effect Self exercising at home. Therapy/Recovery PT-OP-C Subjective Start: 01/08/20 17:12 Freq: Status: Active Protocol: Document 01/30/20 09:02 SP (Rec: 01/30/20 10:17 SP [id number]) OP-PT Subjective Patient Comments Patient Comments Pt reported feel making some progress, compliant with exercises at home and using heating pad to warm up. No adverse reactions to tx and not sure if US helped but knows was on lowest setting. PT-OP-E Functional Tests Start: 01/08/20 17:12 Freq: Status: Active Protocol: Document 01/12/20 09:05 LRN (Rec: 01/12/20 09:53 LRN [id number]) Functional Tests Apley's Scratch Test Action 2- Right 5 PT-OP-H Neuro Start: 01/08/20 17:12 Freq: Status: Active Protocol: Document 01/12/20 09:05 LRN (Rec: 01/13/20 17:21 LRN [id number]) Sensation Evaluation Gross Sensation Gross Sensation WNL PT-OP-J Posture/Palpation/Skin Start: 01/08/20 17:12 Freq: Status: Active Protocol: Document 01/12/20 09:05 LRN (Rec: 01/13/20 17:21 LRN [id number]) Posture Evaluation Position Standing Evaluation View Posterior, Anterior, Lateral Head/C-Spine Posture Side Bent Right T-Spine Posture Flexible Scoliosis on (L), Increased Kyphosis Scapula Posture (R) Retracted,(R) Depressed PT-OP-K Range of Motion Start: 01/08/20 17:12 Freq: Status: Active Protocol: Document 01/26/20 09:35 LRN (Rec: 01/26/20 10:36 LRN [id number]) Shoulder Goniometric Range of Motion Shoulder Right Passive Testing Position Supine Flexion 180 PT-OP-L Special Tests Start: 01/08/20 17:12 Freq: Status: Active Protocol: Document 01/12/20 09:05 LRN (Rec: 01/13/20 17:21 LRN [id number]) Special Tests Cervical Spine Special Tests Vertebral Artery Test Results Negative bilaterally Traction Test Results Negative Foraminal Compression Test Results Negative Shoulder Special Tests IR/Horizontal ADD Impingement Test Results - right Comments No significant R shoulder pain Luke Jhony Impingement Test Results + right Comments R shoulder pain Empty Can Test Results + right Comments Subacromial pain Elevation Impingement Test Results + right Comments Subacromial pain PT-OP-M Strength Start: 01/08/20 17:12 Freq: Status: Active Protocol: Document 01/12/20 09:05 LRN (Rec: 01/13/20 17:21 LRN [id number]) Cervical Spine Strength Cervical Spine Manual Muscle Testing Comments Generally 5/5. Shoulder Strength Shoulder Manual Muscle Testing Left Comments Generally 5/5. Right Flexion 5 Normal Extension 5 Normal Abduction (C5) 2+ Poor+ External Rotation 4 Good Internal Rotation 3+ Fair+ PT-OP-Q Treatments Start: 01/08/20 17:12 Freq: Status: Active Protocol: Document 01/30/20 09:02 SP (Rec: 01/30/20 10:17 SP [id number]) Therapeutic Exercises Supine Exercises Shoulder Flex Supine Exercise Name R Active shoulder flex Side bilateral Equipment Used Cane Reps/Minutes x10 Comments End-range tight, no pain, extra time for painfree movement and stretch Lat Pull Down Supine Exercise Name Lat Pull Down Side bilateral Equipment Used 3#, cane on 1/2 foam roller Reps/Minutes 15x 2 Comments cued slow scap stab- good form better like standing than table Sidelying Exercises R shoulder ABD w/ inf glide/ scap stab Sidelying Exercise Name Shoulder AB w/scapular retraining Side right Resistance AROM x10, #1 x10 Equipment Used towel roll under arm assist positioning comfort at side Comments Slow mvmt, cuing w/manual facilitiation humeral head inf glide & scap stab. Standing Exercises Shoulder ER Standing Exercise Name Shoulder ER w/ towel roll under arm Side right Equipment Used Lev 1 Reps/Minutes 2x10 Comments occasional cuing for scap retract/ inf glide humeral head Lat Pull down Standing Exercise Name Lat Pull down Side bilateral Equipment Used Level 3 Comments cued ribcage elevation, scap stab concentric/ eccentric directioning, slow Scap retract Standing Exercise Name Row w/scapular depressioin Side bilateral Equipment Used Lev 3 Reps/Minutes 15x Comments cued ribcage elevation, scap stab concentric/ eccentric directioning Shoulder IR Standing Exercise Name Shoulder IR w/ towel roll under arm Side right Equipment Used Lev 2 2x10 reps> Lev 3 [id number] Comments occasional cuing for scap retract/ inf glide humeral head and trunk stab PT-OP-R Modalities Start: 01/08/20 17:12 Freq: Status: Active Protocol: Document 01/30/20 09:02 SP (Rec: 01/30/20 10:17 SP [id number]) Ultrasound Therapy Treatment R subacromial shoulder Treatment Duration (minutes) 8 Patient Position Supine Applicator Size (cm2) 2 Frequency Setting (mHz) 3 Mode Setting Pulsed Duty Cycle 50% Intensity Setting (w/cm2) 1.2 Comments US focus @ Bicepital groove and Supraspinatus attachment at humeral head. PT-OP-T Assessment and Plan Start: 01/08/20 17:12 Freq: Status: Active Protocol: Document 01/30/20 09:02 SP (Rec: 01/30/20 10:17 SP [id number]) Physical Therapy Assessment Goals Three Impairment Decreased R shoulder ROM (AROM : sitting AB 85 deg's;PROM supine ER 45 deg ) Short Term Goal (STG) Improve R shoulder AROM with pt able to put dishes away with mild discomfort. STG Duration 02/02/20 Fpc Goal (LTG) Improve R shoulder PROM (to supine 70 deg's and IR reaching T6 without pain) with pt able to remove his T- shirts and scratch behind his back with mild difficulty. LTG Duration 02/08/21 Two Impairment Decreased R shoulder strength pain. Short Term Goal (STG) Improve R shoulder strength 1/ 2 grade, with pt able to lift small objects without pain. STG Duration 01/26/20 Fpc Goal (LTG) Improve R shoulder strength 1 grade with pt able to lie on the R side at night. Removing T-Shirts, putting dishes away,, scratching behind back LTG Duration 02/08/21 One Impairment Pt lacks appropriate self care HEP Short Term Goal (STG) Pt will be independent in a self care HEP. STG Duration 01/19/20 (01/19/20: Progressing) Fpc Goal (LTG) Pt will be independent in a self care progressive HEP of R shoulder/scapular stabilization and core strengthening exercises. LTG Duration 04/11/20 Progress Towards Goals Progress Comments R shoulder supine pain free end range, sidelying and standing AROM and resisted is mainly pain free, see assessment. Assessment Summary Assessment Pt tolerated tx well, minimal cuing for trunk decrease hip/ LS and knee ext locked positioing during UE Tb HEP with improvement and pain free tolerance. Pt able to increase resistance lat pul downs #3 TB today with good form self corrections for stability, including ROM supine over initiated 1/2foam roller today. No adverse reactions to tx, feels like worked his muscled in a good way and better understand humerus and shoulder positioning. Pt reported little irritation during L sidelying ABD with #1 but alot better than and still feels beneficial to continue, especially with towel roll under arm to prevent comfort rest starting position. Pt reportd no adverse affects to US, I don't really feel anything. Physical Therapy Plan Frequency and Duration Frequency of Treatment 2x/Week Plan of Care Start Date 01/12/20 Plan of Care End Date 04/11/20 Therapeutic Interventions Therapeutic Interventions Home Exercise Program,Joint Mobilizations,Manual Therapy, Neuromuscular Re-education, Patient/Caregiver Education, Self-Care/Home Management,Soft Tissue Mobilization,Taping, Therapeutic Exercises Modalities Cold Pack/Ice Massage, Ultrasound Next Visit Focus/Plan Next Note Type Treatment Note Next Visit Plan Note: 2 visits scheduled, assess if add more. Discussed with self warm up at home & warm up MHP and AROM or ex ( UBE at shoulder height or Biodex)- unavailable today but continue future tx, f/b painfree stretch to R shoulder and rotator cuff strengthening with progressive issuance of HEP. Strengthening scapular stabilizers. Assess R shoulder AROM sitting, before and after Ultrasound. Assess response to tx HEP form w/ increase TB resistance. Reassess form and tolerance with increased resistance. Assess US response to improved R shoulder ROM at end of tx next. Continue per PT POC: Focus treatment on a self care HEP and decreasing his pain with reaching/lifting. Once pt is on a HEP decrease PT visits or DC to HEP per pt preference.
--- NOTE | 2020-02-02 16:57 | PT.OTN ---
Current Diagnoses Pain in right shoulder (02/02/20) Postural kyphosis, thoracic region (02/02/20) Muscle weakness (generalized) (02/02/20) Physical Therapy Treatment Note PT-OP-A Visit Information Start: 01/08/20 17:12 Freq: Status: Active Protocol: Document 02/02/20 09:05 LRN (Rec: 02/02/20 09:58 LRN [id number]) Out-Patient Physical Therapy Visit Information Visit Information Visit Type Treatment Note Visit Start Time 09:05 Visit Stop Time 09:55 Total Visit Minutes 50 Visit Number 6 Evaluation Information Evaluation Date 01/12/20 Precautions Precautions None PT-OP-B Current Condition Start: 01/08/20 17:12 Freq: Status: Active Protocol: Document 01/12/20 09:05 LRN (Rec: 01/12/20 09:53 LRN [id number]) Current Condition History of Current Condition Onset Date 6 months ago Current Complaints R shoulder sharp pain with certain movements. History of Current Condition R handed. Woke with R shoulder pain. Has worsened a little for the past few months . Has sharp pain with certain movements and positions of the arms (out to side, and AB upward movement). Had done nothing out of ordinary. Was doing workout that he did at a gym at home but didn't do warm ups. Denies any history of neck or R shoulder injury. Prior Treatments and Tests None Future Testing and Treatments Planned No recheck visit with Arianne Redmond. Developmental History Developmental History Push ups, Pull ups in doorway, without warm up since May. At gym would do the same but a warm up before the weights ( sit in sauna and stretch), then eliptical work out 10'. Treatment Goals Patient/Caregiver Goals Pt goal is to get a routine of ex and strengthening to fix the shoulder. Prior Functional Status Baseline Function- ADL's Independent Baseline Function- Mobility Independent Baseline Function- Other Sometimes woke with stiffness neck/shoulder but nothing lasting. Current Functional Impairments (Reported) Functional Limitations- ADL's Removing T-Shirts, putting dishes away, lifting smallest objects, scratching behind back, Can't lie on the R side at night (can sleep throught the night). Personal Factors Other Personal Factors That May Effect Self exercising at home. Therapy/Recovery PT-OP-C Subjective Start: 01/08/20 17:12 Freq: Status: Active Protocol: Document 02/02/20 09:05 LRN (Rec: 02/02/20 09:58 LRN [id number]) OP-PT Subjective Patient Comments Patient Comments States he thinks he is getting stronger. States he has a wider range of painfree movements, but it hurts pretty much if he goes beyond where it hurts, it hurts just as much. PT-OP-E Functional Tests Start: 01/08/20 17:12 Freq: Status: Active Protocol: Document 01/12/20 09:05 LRN (Rec: 01/12/20 09:53 LRN [id number]) Functional Tests Apley's Scratch Test Action 2- Right 5 PT-OP-H Neuro Start: 01/08/20 17:12 Freq: Status: Active Protocol: Document 01/12/20 09:05 LRN (Rec: 01/13/20 17:21 LRN [id number]) Sensation Evaluation Gross Sensation Gross Sensation WNL PT-OP-J Posture/Palpation/Skin Start: 01/08/20 17:12 Freq: Status: Active Protocol: Document 01/12/20 09:05 LRN (Rec: 01/13/20 17:21 LRN [id number]) Posture Evaluation Position Standing Evaluation View Posterior, Anterior, Lateral Head/C-Spine Posture Side Bent Right T-Spine Posture Flexible Scoliosis on (L), Increased Kyphosis Scapula Posture (R) Retracted,(R) Depressed PT-OP-K Range of Motion Start: 01/08/20 17:12 Freq: Status: Active Protocol: Document 01/26/20 09:35 LRN (Rec: 01/26/20 10:36 LRN [id number]) Shoulder Goniometric Range of Motion Shoulder Right Passive Testing Position Supine Flexion 180 PT-OP-L Special Tests Start: 01/08/20 17:12 Freq: Status: Active Protocol: Document 01/12/20 09:05 LRN (Rec: 01/13/20 17:21 LRN [id number]) Special Tests Cervical Spine Special Tests Vertebral Artery Test Results Negative bilaterally Traction Test Results Negative Foraminal Compression Test Results Negative Shoulder Special Tests IR/Horizontal ADD Impingement Test Results - right Comments No significant R shoulder pain Luke Jhony Impingement Test Results + right Comments R shoulder pain Empty Can Test Results + right Comments Subacromial pain Elevation Impingement Test Results + right Comments Subacromial pain PT-OP-M Strength Start: 01/08/20 17:12 Freq: Status: Active Protocol: Document 01/12/20 09:05 LRN (Rec: 01/13/20 17:21 LRN [id number]) Cervical Spine Strength Cervical Spine Manual Muscle Testing Comments Generally 5/5. Shoulder Strength Shoulder Manual Muscle Testing Left Comments Generally 5/5. Right Flexion 5 Normal Extension 5 Normal Abduction (C5) 2+ Poor+ External Rotation 4 Good Internal Rotation 3+ Fair+ PT-OP-Q Treatments Start: 01/08/20 17:12 Freq: Status: Active Protocol: Document 02/02/20 09:05 LRN (Rec: 02/02/20 09:58 LRN [id number]) Cardio Equipment Upper Body Ergometer (UBE) Duration (Minutes) 8 RPM 80 Seat Position 10 Height 3 Other no pain Therapeutic Exercises Supine Exercises Lat Pull Down Supine Exercise Name Lat Pull Down Side bilateral Equipment Used 3#, cane Reps/Minutes 15x 2 Comments cued slow scap stab- good form better like standing than table Sitting Exercises Overhead joão Sitting Exercise Name Warm up ex (flex & AB with long/short arm) Reps/Minutes 10' Comments Extra time for pt to determine pain free movement with scap control Standing Exercises R shoulder flex wall slide Standing Exercise Name R shoulder flex - hand sliding up wall Side right Equipment Used towel on wall Reps/Minutes 4' Shoulder ER Standing Exercise Name Shoulder ER w/ towel roll under arm Side right Resistance Variable: More resistance 0-30 deg, Light 30-~70 degs. Equipment Used Lev 2 Reps/Minutes 10x, 15x Comments occasional cuing for scap retract/ inf glide humeral head & palm up Scap retract Standing Exercise Name Row w/scapular depressioin Side bilateral Equipment Used Lev 3 Reps/Minutes 15x 2 Comments cued ribcage elevation, scap stab concentric/ eccentric directioning Shoulder IR Standing Exercise Name Shoulder IR w/ towel roll under arm Side right Equipment Used Lev 2 1x10 reps> Lev 3 [id number] Comments occasional cuing for scap retract/ inf glide humeral head and trunk stab Manual Therapy Treatment Soft Tissue Mobilization Subscapularis Body Location R shoulder Subscap stretch Mobilization Type Other Body Position Sidelying Comments Distraction of R subscapularis Self-Care/Home Management Treatment Education Patient Education Home Exercise Program Activities Self-Care/Home Management Activities Reviewed focus on HEP of R shoulder/scapular strengthening and discussed at length warm up options. PT-OP-R Modalities Start: 01/08/20 17:12 Freq: Status: Active Protocol: Document 01/30/20 09:02 SP (Rec: 01/30/20 10:17 SP [id number]) Ultrasound Therapy Treatment R subacromial shoulder Treatment Duration (minutes) 8 Patient Position Supine Applicator Size (cm2) 2 Frequency Setting (mHz) 3 Mode Setting Pulsed Duty Cycle 50% Intensity Setting (w/cm2) 1.2 Comments US focus @ Bicepital groove and Supraspinatus attachment at humeral head. PT-OP-T Assessment and Plan Start: 01/08/20 17:12 Freq: Status: Active Protocol: Document 02/02/20 09:05 LRN (Rec: 02/02/20 09:58 LRN [id number]) Physical Therapy Assessment Goals Three Impairment Decreased R shoulder ROM (AROM : sitting AB 85 deg's;PROM supine ER 45 deg ) Short Term Goal (STG) Improve R shoulder AROM with pt able to put dishes away with mild discomfort. (02/02/20: able to put away light dishes) STG Duration 02/02/20 (02/02/20: Improving) Long-Term Goal (LTG) Improve R shoulder PROM (to supine 70 deg's and IR reaching T6 without pain) with pt able to remove his T- shirts and scratch behind his back with mild difficulty. (02/02/20: Intermittently able to remove T-shirt without pain) LTG Duration 02/08/21 (02/02/20: Improving ) Two Impairment Decreased R shoulder strength pain. Short Term Goal (STG) Improve R shoulder strength 1/ 2 grade, with pt able to lift small objects without pain. STG Duration 01/26/20 Secondary Art Teacher Goal (LTG) Improve R shoulder strength 1 grade with pt able to lie on the R side at night. LTG Duration 02/08/21 One Impairment Pt lacks appropriate self care HEP Short Term Goal (STG) Pt will be independent in a self care HEP. STG Duration 01/19/20 (01/19/20: Progressing) Long-Term Goal (LTG) Pt will be independent in a self care progressive HEP of R shoulder/scapular stabilization and core strengthening exercises. LTG Duration 04/11/20 Assessment Summary Assessment Pt shows good understanding of his HEP. It is appropriate to decrease therapy in clinic and increase his committment for self nursing home exercises; therefore changed attendance to therapy to 1x/week for 4 weeks. Pt has mainly pain with reaching out to side and end-range shoulder flexion with weight or when pushing. He is hyper mobile with the Subscapularis on the L and is less mobile on the R, but still exhibits quite a bit of mobility on the R. Pt needs further scapular stabilization and RC strengthening and will need to progress to more resistive CKC tolerance exercises. Physical Therapy Plan Frequency and Duration Frequency of Treatment 1x/Week Plan of Care Start Date 01/12/20 Plan of Care End Date 04/11/20 Next Visit Focus/Plan Next Note Type Treatment Note Next Visit Plan Recheck R shoulder AROM and progress HEP (ER/IR strengthening with shoulder in AB & for CKC strengthening). Focus on painfree stretch to R shoulder and rotator cuff & scapular stabilization strengthening with progressive issuance of HEP. Assess need for US for improved R shoulder ROM at end of tx. Assess R shoulder AROM sitting , before and after Ultrasound.
--- NOTE | 2020-02-02 18:15 | PT.OTN ---
Current Diagnoses Pain in right shoulder (02/16/20) Postural kyphosis, thoracic region (02/16/20) Muscle weakness (generalized) (02/16/20) Physical Therapy Treatment Note PT-OP-A Visit Information Start: 01/08/20 17:12 Freq: Status: Active Protocol: Document 02/16/20 14:31 LRN (Rec: 02/16/20 15:37 LRN [id number]) Out-Patient Physical Therapy Visit Information Visit Information Visit Type Treatment Note Visit Start Time 14:31 Visit Stop Time 15:20 Total Visit Minutes 49 Visit Number 7 Evaluation Information Evaluation Date 02/16/20 Precautions Precautions None PT-OP-B Current Condition Start: 01/08/20 17:12 Freq: Status: Active Protocol: Document 01/12/20 09:05 LRN (Rec: 01/12/20 09:53 LRN [id number]) Current Condition History of Current Condition Onset Date 6 months ago Current Complaints R shoulder sharp pain with certain movements. History of Current Condition R handed. Woke with R shoulder pain. Has worsened a little for the past few months . Has sharp pain with certain movements and positions of the arms (out to side, and AB upward movement). Had done nothing out of ordinary. Was doing workout that he did at a gym at home but didn't do warm ups. Denies any history of neck or R shoulder injury. Prior Treatments and Tests None Future Testing and Treatments Planned No recheck visit with Arianne Redmond. Developmental History Developmental History Push ups, Pull ups in doorway, without warm up since May. At gym would do the same but a warm up before the weights ( sit in sauna and stretch), then eliptical work out 10'. Treatment Goals Patient/Caregiver Goals Pt goal is to get a routine of ex and strengthening to fix the shoulder. Prior Functional Status Baseline Function- ADL's Independent Baseline Function- Mobility Independent Baseline Function- Other Sometimes woke with stiffness neck/shoulder but nothing lasting. Current Functional Impairments (Reported) Functional Limitations- ADL's Removing T-Shirts, putting dishes away, lifting smallest objects, scratching behind back, Can't lie on the R side at night (can sleep throught the night). Personal Factors Other Personal Factors That May Effect Self exercising at home. Therapy/Recovery PT-OP-C Subjective Start: 01/08/20 17:12 Freq: Status: Active Protocol: Document 02/16/20 14:31 LRN (Rec: 02/16/20 15:37 LRN [id number]) OP-PT Subjective Patient Comments Patient Comments Able to do more normal movements without pain. Still painful when moving in certain movements (reaching behind back, and out to side). Has not done any lifting overhead. Exercising daily. No problem removing Tshirts although maybe doing it differently. Patient Reported Progress Improving PT-OP-E Functional Tests Start: 01/08/20 17:12 Freq: Status: Active Protocol: Document 02/16/20 14:31 LRN (Rec: 02/16/20 15:42 LRN [id number]) Functional Tests Apley's Scratch Test Action 2- Left T6 (late entry: previously was T3) Action 2- Right T5 (late entry: previously was T4) Action 3- Left T5 (late entry: previously was T5) Action 3- Right T5 (late entry: previously was T6) PT-OP-H Neuro Start: 01/08/20 17:12 Freq: Status: Active Protocol: Document 01/12/20 09:05 LRN (Rec: 01/13/20 17:21 LRN [id number]) Sensation Evaluation Gross Sensation Gross Sensation WNL PT-OP-J Posture/Palpation/Skin Start: 01/08/20 17:12 Freq: Status: Active Protocol: Document 01/12/20 09:05 LRN (Rec: 01/13/20 17:21 LRN [id number]) Posture Evaluation Position Standing Evaluation View Posterior, Anterior, Lateral Head/C-Spine Posture Side Bent Right T-Spine Posture Flexible Scoliosis on (L), Increased Kyphosis Scapula Posture (R) Retracted,(R) Depressed PT-OP-K Range of Motion Start: 01/08/20 17:12 Freq: Status: Active Protocol: Document 02/16/20 14:31 LRN (Rec: 02/16/20 15:42 LRN [id number]) Shoulder Goniometric Range of Motion Shoulder Right Passive Testing Position Supine Flexion 180 Abduction 180 External Rotation at 90 degrees 90 Abduction Comments AB pain location at ~90 deg's AB. Right Active Testing Position Sitting Flexion 180 Internal Rotation Behind Back (text) T5 PT-OP-L Special Tests Start: 01/08/20 17:12 Freq: Status: Active Protocol: Document 01/12/20 09:05 LRN (Rec: 01/13/20 17:21 LRN [id number]) Special Tests Cervical Spine Special Tests Vertebral Artery Test Results Negative bilaterally Traction Test Results Negative Foraminal Compression Test Results Negative Shoulder Special Tests IR/Horizontal ADD Impingement Test Results - right Comments No significant R shoulder pain Luke Jhony Impingement Test Results + right Comments R shoulder pain Empty Can Test Results + right Comments Subacromial pain Elevation Impingement Test Results + right Comments Subacromial pain PT-OP-M Strength Start: 01/08/20 17:12 Freq: Status: Active Protocol: Document 01/12/20 09:05 LRN (Rec: 01/13/20 17:21 LRN [id number]) Cervical Spine Strength Cervical Spine Manual Muscle Testing Comments Generally 5/5. Shoulder Strength Shoulder Manual Muscle Testing Left Comments Generally 5/5. Right Flexion 5 Normal Extension 5 Normal Abduction (C5) 2+ Poor+ External Rotation 4 Good Internal Rotation 3+ Fair+ PT-OP-Q Treatments Start: 01/08/20 17:12 Freq: Status: Active Protocol: Document 02/16/20 14:31 LRN (Rec: 02/16/20 15:37 LRN [id number]) Cardio Equipment Upper Body Ergometer (UBE) Duration (Minutes) 8 RPM 60 Seat Position 10 Height 5 Other no pain Therapeutic Exercises Supine Exercises R Shoulder AB Supine Exercise Name Shoulder AB training of movement Side right Reps/Minutes 10x 6 Comments x2: Progressively providing less assist to scapula Shoulder Flex Supine Exercise Name Shoulder Flex w/proper scapular movement Side right Reps/Minutes 5' Comments Progressively providing less assist to scpaula Lat Pull Down Supine Exercise Name Lat Pull Down Side bilateral Resistance Lev 3 TB Equipment Used 4#, cane Reps/Minutes 15x 2 Comments cued slow scap stab- good form better like standing than table Sitting Exercises Sivakumar PNF Sitting Exercise Name PNF D2 Flex/Ext for removing shirt Side bilateral Reps/Minutes 10x Comments Extra time to teach pt proper movement & arm rotation movement Overhead joão Sitting Exercise Name Warm up ex (flex & AB with long/short arm) Reps/Minutes 10' Comments Extra time for pt to determine pain free movement with scap control Manual Therapy Treatment Soft Tissue Mobilization Subscapularis Body Location R shoulder Subscap stretch Mobilization Type Other Body Position Sidelying Comments Distraction of R subscapularis Joint Mobilizations R GHJ Joint R GHJ Direction Inferior glide Grade II Body Position Supine Self-Care/Home Management Treatment Education Patient Education Home Exercise Program Activities Self-Care/Home Management Activities I/S pt in HEP of bilateral PNF D2 Flexion/Extension (hips to V-position) PT-OP-R Modalities Start: 01/08/20 17:12 Freq: Status: Active Protocol: Document 01/30/20 09:02 SP (Rec: 01/30/20 10:17 SP [id number]) Ultrasound Therapy Treatment R subacromial shoulder Treatment Duration (minutes) 8 Patient Position Supine Applicator Size (cm2) 2 Frequency Setting (mHz) 3 Mode Setting Pulsed Duty Cycle 50% Intensity Setting (w/cm2) 1.2 Comments US focus @ Bicepital groove and Supraspinatus attachment at humeral head. PT-OP-T Assessment and Plan Start: 01/08/20 17:12 Freq: Status: Active Protocol: Document 02/16/20 14:31 LRN (Rec: 02/16/20 15:37 LRN [id number]) Physical Therapy Assessment Goals Three Impairment Decreased R shoulder ROM (AROM : sitting AB 85 deg's;PROM supine ER 45 deg ) Short Term Goal (STG) Improve R shoulder AROM with pt able to put dishes away with mild discomfort. (02/16/20: Normal R shoulder active flexion and IR without pain, normal AB with pain ~90 degs; pt able to put dishes away without pain) STG Duration 02/02/20 (02/16/20: MET GOAL ) Track Service Person Goal (LTG) Improve R shoulder PROM (to supine 70 deg's and IR reaching T6 without pain) with pt able to remove his T- shirts and scratch behind his back with mild difficulty. (02/02/20: Intermittently able to remove T-shirt without pain) LTG Duration 02/08/21 (02/02/20: Improving ) Two Impairment Decreased R shoulder strength pain. Short Term Goal (STG) Improve R shoulder strength 1/ 2 grade, with pt able to lift small objects without pain. STG Duration 01/26/20 Alf Goal (LTG) Improve R shoulder strength 1 grade with pt able to lie on the R side at night. (02/16/20: Pt able to sleep on R side, strength not assessed ). LTG Duration 02/08/21 (02/16/20: Improving) One Impairment Pt lacks appropriate self care HEP Short Term Goal (STG) Pt will be independent in a self care HEP. STG Duration 01/19/20 (01/19/20: Progressing) Alf Goal (LTG) Pt will be independent in a self care progressive HEP of R shoulder/scapular stabilization and core strengthening exercises. LTG Duration 04/11/20 Progress Towards Goals Progress Comments Improved R shoulder AROM by end of treatment to normal without pain. AB pain only in one location ~90 deg's AB, resolved end-range pain after scapular movement training. Assessment Summary Assessment Pt is improving in function and active movement of R shoulder. See progress comments above. Physical Therapy Plan Frequency and Duration Frequency of Treatment 1x/Week Plan of Care Start Date 01/12/20 Plan of Care End Date 04/11/20 Next Visit Focus/Plan Next Note Type Treatment Note Next Visit Plan Assess R shoulder strength ( Goal 2), monitor R shoulder AROM and progress HEP (ER/IR strengthening with shoulder in AB & for CKC strengthening). Add core strengthening exercises). Focus on painfree R shoulder ROM; rotator cuff strengthening & scapular stabilization, with progressive issuance of HEP. If needed, US for improved R shoulder ROM at end of tx, but with assessment of R shoulder AROM sitting, before and after Ultrasound.
--- NOTE | 2020-02-16 15:43 | PT.OTN ---
Current Diagnoses Pain in right shoulder (02/16/20) Postural kyphosis, thoracic region (02/16/20) Muscle weakness (generalized) (02/16/20) Physical Therapy Treatment Note PT-OP-A Visit Information Start: 01/08/20 17:12 Freq: Status: Active Protocol: Document 02/16/20 14:31 LRN (Rec: 02/16/20 15:37 LRN [id number]) Out-Patient Physical Therapy Visit Information Visit Information Visit Type Treatment Note Visit Start Time 14:31 Visit Stop Time 15:20 Total Visit Minutes 49 Visit Number 7 Evaluation Information Evaluation Date 02/16/20 Precautions Precautions None PT-OP-B Current Condition Start: 01/08/20 17:12 Freq: Status: Active Protocol: Document 01/12/20 09:05 LRN (Rec: 01/12/20 09:53 LRN [id number]) Current Condition History of Current Condition Onset Date 6 months ago Current Complaints R shoulder sharp pain with certain movements. History of Current Condition R handed. Woke with R shoulder pain. Has worsened a little for the past few months . Has sharp pain with certain movements and positions of the arms (out to side, and AB upward movement). Had done nothing out of ordinary. Was doing workout that he did at a gym at home but didn't do warm ups. Denies any history of neck or R shoulder injury. Prior Treatments and Tests None Future Testing and Treatments Planned No recheck visit with Arianne Redmond. Developmental History Developmental History Push ups, Pull ups in doorway, without warm up since May. At gym would do the same but a warm up before the weights ( sit in sauna and stretch), then eliptical work out 10'. Treatment Goals Patient/Caregiver Goals Pt goal is to get a routine of ex and strengthening to fix the shoulder. Prior Functional Status Baseline Function- ADL's Independent Baseline Function- Mobility Independent Baseline Function- Other Sometimes woke with stiffness neck/shoulder but nothing lasting. Current Functional Impairments (Reported) Functional Limitations- ADL's Removing T-Shirts, putting dishes away, lifting smallest objects, scratching behind back, Can't lie on the R side at night (can sleep throught the night). Personal Factors Other Personal Factors That May Effect Self exercising at home. Therapy/Recovery PT-OP-C Subjective Start: 01/08/20 17:12 Freq: Status: Active Protocol: Document 02/16/20 14:31 LRN (Rec: 02/16/20 15:37 LRN [id number]) OP-PT Subjective Patient Comments Patient Comments Able to do more normal movements without pain. Still painful when moving in certain movements (reaching behind back, and out to side). Has not done any lifting overhead. Exercising daily. No problem removing Tshirts although maybe doing it differently. Patient Reported Progress Improving PT-OP-E Functional Tests Start: 01/08/20 17:12 Freq: Status: Active Protocol: Document 02/16/20 14:31 LRN (Rec: 02/16/20 15:42 LRN [id number]) Functional Tests Apley's Scratch Test Action 2- Left T6 (late entry: previously was T3) Action 2- Right T5 (late entry: previously was T4) Action 3- Left T5 (late entry: previously was T5) Action 3- Right T5 (late entry: previously was T6) PT-OP-H Neuro Start: 01/08/20 17:12 Freq: Status: Active Protocol: Document 01/12/20 09:05 LRN (Rec: 01/13/20 17:21 LRN [id number]) Sensation Evaluation Gross Sensation Gross Sensation WNL PT-OP-J Posture/Palpation/Skin Start: 01/08/20 17:12 Freq: Status: Active Protocol: Document 01/12/20 09:05 LRN (Rec: 01/13/20 17:21 LRN [id number]) Posture Evaluation Position Standing Evaluation View Posterior, Anterior, Lateral Head/C-Spine Posture Side Bent Right T-Spine Posture Flexible Scoliosis on (L), Increased Kyphosis Scapula Posture (R) Retracted,(R) Depressed PT-OP-K Range of Motion Start: 01/08/20 17:12 Freq: Status: Active Protocol: Document 02/16/20 14:31 LRN (Rec: 02/16/20 15:42 LRN [id number]) Shoulder Goniometric Range of Motion Shoulder Right Passive Testing Position Supine Flexion 180 Abduction 180 External Rotation at 90 degrees 90 Abduction Comments AB pain location at ~90 deg's AB. Right Active Testing Position Sitting Flexion 180 Internal Rotation Behind Back (text) T5 PT-OP-L Special Tests Start: 01/08/20 17:12 Freq: Status: Active Protocol: Document 01/12/20 09:05 LRN (Rec: 01/13/20 17:21 LRN [id number]) Special Tests Cervical Spine Special Tests Vertebral Artery Test Results Negative bilaterally Traction Test Results Negative Foraminal Compression Test Results Negative Shoulder Special Tests IR/Horizontal ADD Impingement Test Results - right Comments No significant R shoulder pain Luke Jhony Impingement Test Results + right Comments R shoulder pain Empty Can Test Results + right Comments Subacromial pain Elevation Impingement Test Results + right Comments Subacromial pain PT-OP-M Strength Start: 01/08/20 17:12 Freq: Status: Active Protocol: Document 01/12/20 09:05 LRN (Rec: 01/13/20 17:21 LRN [id number]) Cervical Spine Strength Cervical Spine Manual Muscle Testing Comments Generally 5/5. Shoulder Strength Shoulder Manual Muscle Testing Left Comments Generally 5/5. Right Flexion 5 Normal Extension 5 Normal Abduction (C5) 2+ Poor+ External Rotation 4 Good Internal Rotation 3+ Fair+ PT-OP-Q Treatments Start: 01/08/20 17:12 Freq: Status: Active Protocol: Document 02/16/20 14:31 LRN (Rec: 02/16/20 15:37 LRN [id number]) Cardio Equipment Upper Body Ergometer (UBE) Duration (Minutes) 8 RPM 60 Seat Position 10 Height 5 Other no pain Therapeutic Exercises Supine Exercises R Shoulder AB Supine Exercise Name Shoulder AB training of movement Side right Reps/Minutes 10x 6 Comments x2: Progressively providing less assist to scapula Shoulder Flex Supine Exercise Name Shoulder Flex w/proper scapular movement Side right Reps/Minutes 5' Comments Progressively providing less assist to scpaula Lat Pull Down Supine Exercise Name Lat Pull Down Side bilateral Resistance Lev 3 TB Equipment Used 4#, cane Reps/Minutes 15x 2 Comments cued slow scap stab- good form better like standing than table Sitting Exercises Sivakumar PNF Sitting Exercise Name PNF D2 Flex/Ext for removing shirt Side bilateral Reps/Minutes 10x Comments Extra time to teach pt proper movement & arm rotation movement Overhead joão Sitting Exercise Name Warm up ex (flex & AB with long/short arm) Reps/Minutes 10' Comments Extra time for pt to determine pain free movement with scap control Manual Therapy Treatment Soft Tissue Mobilization Subscapularis Body Location R shoulder Subscap stretch Mobilization Type Other Body Position Sidelying Comments Distraction of R subscapularis Joint Mobilizations R GHJ Joint R GHJ Direction Inferior glide Grade II Body Position Supine Self-Care/Home Management Treatment Education Patient Education Home Exercise Program Activities Self-Care/Home Management Activities I/S pt in HEP of bilateral PNF D2 Flexion/Extension (hips to V-position) PT-OP-R Modalities Start: 01/08/20 17:12 Freq: Status: Active Protocol: Document 01/30/20 09:02 SP (Rec: 01/30/20 10:17 SP [id number]) Ultrasound Therapy Treatment R subacromial shoulder Treatment Duration (minutes) 8 Patient Position Supine Applicator Size (cm2) 2 Frequency Setting (mHz) 3 Mode Setting Pulsed Duty Cycle 50% Intensity Setting (w/cm2) 1.2 Comments US focus @ Bicepital groove and Supraspinatus attachment at humeral head. PT-OP-T Assessment and Plan Start: 01/08/20 17:12 Freq: Status: Active Protocol: Document 02/16/20 14:31 LRN (Rec: 02/16/20 15:37 LRN [id number]) Physical Therapy Assessment Goals Three Impairment Decreased R shoulder ROM (AROM : sitting AB 85 deg's;PROM supine ER 45 deg ) Short Term Goal (STG) Improve R shoulder AROM with pt able to put dishes away with mild discomfort. (02/16/20: Normal R shoulder active flexion and IR without pain, normal AB with pain ~90 degs; pt able to put dishes away without pain) STG Duration 02/02/20 (02/16/20: MET GOAL ) Building Custodian Goal (LTG) Improve R shoulder PROM (to supine 70 deg's and IR reaching T6 without pain) with pt able to remove his T- shirts and scratch behind his back with mild difficulty. (02/02/20: Intermittently able to remove T-shirt without pain) LTG Duration 02/08/21 (02/02/20: Improving ) Two Impairment Decreased R shoulder strength pain. Short Term Goal (STG) Improve R shoulder strength 1/ 2 grade, with pt able to lift small objects without pain. STG Duration 01/26/20 Fdc Goal (LTG) Improve R shoulder strength 1 grade with pt able to lie on the R side at night. (02/16/20: Pt able to sleep on R side, strength not assessed ). LTG Duration 02/08/21 (02/16/20: Improving) One Impairment Pt lacks appropriate self care HEP Short Term Goal (STG) Pt will be independent in a self care HEP. STG Duration 01/19/20 (01/19/20: Progressing) Fdc Goal (LTG) Pt will be independent in a self care progressive HEP of R shoulder/scapular stabilization and core strengthening exercises. LTG Duration 04/11/20 Progress Towards Goals Progress Comments Improved R shoulder AROM by end of treatment to normal without pain. AB pain only in one location ~90 deg's AB, resolved end-range pain after scapular movement training. Assessment Summary Assessment Pt is improving in function and active movement of R shoulder. See progress comments above. Physical Therapy Plan Frequency and Duration Frequency of Treatment 1x/Week Plan of Care Start Date 01/12/20 Plan of Care End Date 04/11/20 Next Visit Focus/Plan Next Note Type Treatment Note Next Visit Plan Assess R shoulder strength ( Goal 2), monitor R shoulder AROM and progress HEP (ER/IR strengthening with shoulder in AB & for CKC strengthening). Add core strengthening exercises). Focus on painfree R shoulder ROM; rotator cuff strengthening & scapular stabilization, with progressive issuance of HEP. If needed, US for improved R shoulder ROM at end of tx, but with assessment of R shoulder AROM sitting, before and after Ultrasound.
--- NOTE | 2020-02-23 09:27 | PT.OTN ---
Current Diagnoses Pain in right shoulder (02/23/20) Postural kyphosis, thoracic region (02/23/20) Muscle weakness (generalized) (02/23/20) Physical Therapy Treatment Note PT-OP-A Visit Information Start: 01/08/20 17:12 Freq: Status: Active Protocol: Document 02/23/20 08:18 LRN (Rec: 02/23/20 09:25 LRN [id number]) Out-Patient Physical Therapy Visit Information Visit Information Visit Type Treatment Note Visit Start Time 08:20 Visit Stop Time 09:09 Total Visit Minutes 49 Visit Number 8 Evaluation Information Evaluation Date 02/16/20 Precautions Precautions None PT-OP-B Current Condition Start: 01/08/20 17:12 Freq: Status: Active Protocol: Document 01/12/20 09:05 LRN (Rec: 01/12/20 09:53 LRN [id number]) Current Condition History of Current Condition Onset Date 6 months ago Current Complaints R shoulder sharp pain with certain movements. History of Current Condition R handed. Woke with R shoulder pain. Has worsened a little for the past few months . Has sharp pain with certain movements and positions of the arms (out to side, and AB upward movement). Had done nothing out of ordinary. Was doing workout that he did at a gym at home but didn't do warm ups. Denies any history of neck or R shoulder injury. Prior Treatments and Tests None Future Testing and Treatments Planned No recheck visit with Arianne Redmond. Developmental History Developmental History Push ups, Pull ups in doorway, without warm up since May. At gym would do the same but a warm up before the weights ( sit in sauna and stretch), then eliptical work out 10'. Treatment Goals Patient/Caregiver Goals Pt goal is to get a routine of ex and strengthening to fix the shoulder. Prior Functional Status Baseline Function- ADL's Independent Baseline Function- Mobility Independent Baseline Function- Other Sometimes woke with stiffness neck/shoulder but nothing lasting. Current Functional Impairments (Reported) Functional Limitations- ADL's Removing T-Shirts, putting dishes away, lifting smallest objects, scratching behind back, Can't lie on the R side at night (can sleep throught the night). Personal Factors Other Personal Factors That May Effect Self exercising at home. Therapy/Recovery PT-OP-C Subjective Start: 01/08/20 17:12 Freq: Status: Active Protocol: Document 02/23/20 08:18 LRN (Rec: 02/23/20 09:25 LRN [id number]) OP-PT Subjective Patient Comments Patient Comments Feels 50 % to normal. Able to do more with exercises (20 reps) without problem and is getting a little stronger. Pain is less often. Less pain with grocery shopping or random thing. Stried to scratch other shoulder or trying to reach behind the back (hand behind neck) and sometimes rolling in bed is painful. Sleeping is okay. Patient Reported Progress Improving PT-OP-E Functional Tests Start: 01/08/20 17:12 Freq: Status: Active Protocol: Document 02/16/20 14:31 LRN (Rec: 02/16/20 15:42 LRN [id number]) Functional Tests Apley's Scratch Test Action 2- Left T6 (late entry: previously was T3) Action 2- Right T5 (late entry: previously was T4) Action 3- Left T5 (late entry: previously was T5) Action 3- Right T5 (late entry: previously was T6) PT-OP-H Neuro Start: 01/08/20 17:12 Freq: Status: Active Protocol: Document 01/12/20 09:05 LRN (Rec: 01/13/20 17:21 LRN [id number]) Sensation Evaluation Gross Sensation Gross Sensation WNL PT-OP-J Posture/Palpation/Skin Start: 01/08/20 17:12 Freq: Status: Active Protocol: Document 01/12/20 09:05 LRN (Rec: 01/13/20 17:21 LRN [id number]) Posture Evaluation Position Standing Evaluation View Posterior, Anterior, Lateral Head/C-Spine Posture Side Bent Right T-Spine Posture Flexible Scoliosis on (L), Increased Kyphosis Scapula Posture (R) Retracted,(R) Depressed PT-OP-K Range of Motion Start: 01/08/20 17:12 Freq: Status: Active Protocol: Document 02/16/20 14:31 LRN (Rec: 02/16/20 15:42 LRN [id number]) Shoulder Goniometric Range of Motion Shoulder Right Passive Testing Position Supine Flexion 180 Abduction 180 External Rotation at 90 degrees 90 Abduction Comments AB pain location at ~90 deg's AB. Right Active Testing Position Sitting Flexion 180 Internal Rotation Behind Back (text) T5 PT-OP-L Special Tests Start: 01/08/20 17:12 Freq: Status: Active Protocol: Document 01/12/20 09:05 LRN (Rec: 01/13/20 17:21 LRN [id number]) Special Tests Cervical Spine Special Tests Vertebral Artery Test Results Negative bilaterally Traction Test Results Negative Foraminal Compression Test Results Negative Shoulder Special Tests IR/Horizontal ADD Impingement Test Results - right Comments No significant R shoulder pain Luke Jhony Impingement Test Results + right Comments R shoulder pain Empty Can Test Results + right Comments Subacromial pain Elevation Impingement Test Results + right Comments Subacromial pain PT-OP-M Strength Start: 01/08/20 17:12 Freq: Status: Active Protocol: Document 01/12/20 09:05 LRN (Rec: 01/13/20 17:21 LRN [id number]) Cervical Spine Strength Cervical Spine Manual Muscle Testing Comments Generally 5/5. Shoulder Strength Shoulder Manual Muscle Testing Left Comments Generally 5/5. Right Flexion 5 Normal Extension 5 Normal Abduction (C5) 2+ Poor+ External Rotation 4 Good Internal Rotation 3+ Fair+ PT-OP-Q Treatments Start: 01/08/20 17:12 Freq: Status: Active Protocol: Document 02/23/20 08:18 LRN (Rec: 02/23/20 09:25 LRN [id number]) Cardio Equipment Upper Body Ergometer (UBE) Duration (Minutes) 9 RPM 60 Seat Position 10 Height 5.5 Other no pain Manual Therapy Treatment Soft Tissue Mobilization Supraspinatus Body Location R Supraspinatus Mobilization Type Trigger Point Release Intensity/Depth 2 Comments active trigger points, also in area of 1st rib. Joint Mobilizations Scapula Joint R Scapulothoracic joint Direction All directions w/o humerus and w/humerus to mob Grade II Reps/Duration 10 R GHJ Joint R GHJ Direction Posterior & Inferior glide Grade II Body Position Supine Reps/Duration 8 Self-Care/Home Management Treatment Education Patient Education Pain Management Other Education Educated pt in [employer] for self TrP treatment to R supraspinatus with handout issued for ordering. Activities Self-Care/Home Management Activities I/S pt in self trigger point treatment to R Supraspinatus & to in increase use of ice to R shoulder, increase reps with ex, and cont with scapular re -training. PT-OP-R Modalities Start: 01/08/20 17:12 Freq: Status: Active Protocol: Document 02/23/20 08:18 LRN (Rec: 02/23/20 09:25 LRN [id number]) Ultrasound Therapy Treatment R subacromial shoulder Treatment Duration (minutes) 5 Patient Position Sitting Applicator Size (cm2) 2 Frequency Setting (mHz) 3 Mode Setting Pulsed Duty Cycle 50% Intensity Setting (w/cm2) 1.0 PT-OP-T Assessment and Plan Start: 01/08/20 17:12 Freq: Status: Active Protocol: Document 02/23/20 08:18 LRN (Rec: 02/23/20 09:25 LRN [id number]) Physical Therapy Assessment Goals Three Impairment Decreased R shoulder ROM (AROM : sitting AB 85 deg's;PROM supine ER 45 deg ) Short Term Goal (STG) Improve R shoulder AROM with pt able to put dishes away with mild discomfort. (02/16/20: Normal R shoulder active flexion and IR without pain, normal AB with pain ~90 degs; pt able to put dishes away without pain) STG Duration 02/02/20 (02/16/20: MET GOAL ) Mcc Goal (LTG) Improve R shoulder PROM (to supine 70 deg's and IR reaching T6 without pain) with pt able to remove his T- shirts and scratch behind his back with mild difficulty. (02/02/20: Intermittently able to remove T-shirt without pain) LTG Duration 02/08/21 (02/02/20: Improving ) Two Impairment Decreased R shoulder strength pain. Short Term Goal (STG) Improve R shoulder strength 1/ 2 grade, with pt able to lift small objects without pain. STG Duration 01/26/20 (02/23/20: MMT not done, but pt able to lift objects w/o pain) Cleaning Supervisor Goal (LTG) Improve R shoulder strength 1 grade with pt able to lie on the R side at night. (02/16/20: Pt able to sleep on R side, strength not assessed ). LTG Duration 02/08/21 (02/23/20: Able to sleep) One Impairment Pt lacks appropriate self care HEP Short Term Goal (STG) Pt will be independent in a self care HEP. STG Duration 01/19/20 (01/19/20: Progressing) Mcc Goal (LTG) Pt will be independent in a self care progressive HEP of R shoulder/scapular stabilization and core strengthening exercises. LTG Duration 04/11/20 Assessment Summary Assessment MMT not assessed. Pt appears to have R Supraspinatus active trigger points and tendonitis . He had less pain with R shoulder AROM after scapular mob and MWM of posteroinferior mob of humeral head with pure & scapular plane AB. Physical Therapy Plan Frequency and Duration Frequency of Treatment 1x/Week Plan of Care Start Date 01/12/20 Plan of Care End Date 04/11/20 Next Visit Focus/Plan Next Note Type Treatment Note Next Visit Plan Assess need for more therapy with pt having 1 more visits after next appt. Assess R shoulder strength (Goal 2) and response to scapular mobs & pt increased use of icing at home. Check R shoulder AROM and progress HEP (ER/IR strengthening with shoulder in AB & for CKC strengthening). Add core strengthening exercises). If needed, US for improved R shoulder ROM at end of tx. Assess pain range of R shoulder AROM sitting, before and after Ultrasound. Plan: Focus on painfree R shoulder ROM; rotator cuff strengthening & scapular stabilization, with progressive issuance of HEP.
--- NOTE | 2020-03-01 09:38 | PT.OTN ---
Current Diagnoses Pain in right shoulder (03/01/20) Postural kyphosis, thoracic region (03/01/20) Muscle weakness (generalized) (03/01/20) Physical Therapy Treatment Note PT-OP-A Visit Information Start: 01/08/20 17:12 Freq: Status: Active Protocol: Document 03/01/20 08:16 LRN (Rec: 03/01/20 09:35 LRN [id number]) Out-Patient Physical Therapy Visit Information Visit Information Visit Type Treatment Note Visit Start Time 08:16 Visit Stop Time 08:05 Total Visit Minutes 50 Visit Number 9 Evaluation Information Evaluation Date 02/16/20 Precautions Precautions None PT-OP-B Current Condition Start: 01/08/20 17:12 Freq: Status: Active Protocol: Document 01/12/20 09:05 LRN (Rec: 01/12/20 09:53 LRN [id number]) Current Condition History of Current Condition Onset Date 6 months ago Current Complaints R shoulder sharp pain with certain movements. History of Current Condition R handed. Woke with R shoulder pain. Has worsened a little for the past few months . Has sharp pain with certain movements and positions of the arms (out to side, and AB upward movement). Had done nothing out of ordinary. Was doing workout that he did at a gym at home but didn't do warm ups. Denies any history of neck or R shoulder injury. Prior Treatments and Tests None Future Testing and Treatments Planned No recheck visit with Arianne Redmond. Developmental History Developmental History Push ups, Pull ups in doorway, without warm up since May. At gym would do the same but a warm up before the weights ( sit in sauna and stretch), then eliptical work out 10'. Treatment Goals Patient/Caregiver Goals Pt goal is to get a routine of ex and strengthening to fix the shoulder. Prior Functional Status Baseline Function- ADL's Independent Baseline Function- Mobility Independent Baseline Function- Other Sometimes woke with stiffness neck/shoulder but nothing lasting. Current Functional Impairments (Reported) Functional Limitations- ADL's Removing T-Shirts, putting dishes away, lifting smallest objects, scratching behind back, Can't lie on the R side at night (can sleep throught the night). Personal Factors Other Personal Factors That May Effect Self exercising at home. Therapy/Recovery PT-OP-C Subjective Start: 01/08/20 17:12 Freq: Status: Active Protocol: Document 03/01/20 08:16 LRN (Rec: 03/01/20 09:35 LRN [id number]) OP-PT Subjective Patient Comments Patient Comments Can reach up and behind without pain, when reaching across body can get pain. 10% better. Overall feels 70% better. States his R shoulder felt better after the last session for the rest of the day. Pain with arms out to side. Can carry groceries without pain, PT-OP-E Functional Tests Start: 01/08/20 17:12 Freq: Status: Active Protocol: Document 03/01/20 08:16 LRN (Rec: 03/01/20 09:35 LRN [id number]) Functional Tests Apley's Scratch Test Action 2- Left T5 Action 2- Right T3 Action 3- Left T5 Action 3- Right T6 PT-OP-H Neuro Start: 01/08/20 17:12 Freq: Status: Active Protocol: Document 01/12/20 09:05 LRN (Rec: 01/13/20 17:21 LRN [id number]) Sensation Evaluation Gross Sensation Gross Sensation WNL PT-OP-J Posture/Palpation/Skin Start: 01/08/20 17:12 Freq: Status: Active Protocol: Document 01/12/20 09:05 LRN (Rec: 01/13/20 17:21 LRN [id number]) Posture Evaluation Position Standing Evaluation View Posterior, Anterior, Lateral Head/C-Spine Posture Side Bent Right T-Spine Posture Flexible Scoliosis on (L), Increased Kyphosis Scapula Posture (R) Retracted,(R) Depressed PT-OP-K Range of Motion Start: 01/08/20 17:12 Freq: Status: Active Protocol: Document 03/01/20 08:16 LRN (Rec: 03/01/20 09:35 LRN [id number]) Shoulder Goniometric Range of Motion Shoulder Left Passive Testing Position Supine Flexion 180 Abduction 180 Horizontal Adduction 45 External Rotation at 90 degrees 90 Abduction Internal Rotation 90 Comments WNL Right Passive Testing Position Supine Flexion 180 Abduction 180 Horizontal Adduction 35 External Rotation at 90 degrees 90 Abduction Internal Rotation 90 Comments NO PAIN. Pain with Horiz AD in 90 deg's AB start position Right Active Testing Position Sitting Flexion 180 Comments Pain with active AB rated 3/10 . PT-OP-L Special Tests Start: 01/08/20 17:12 Freq: Status: Active Protocol: Document 03/01/20 08:16 LRN (Rec: 03/01/20 09:35 LRN [id number]) Special Tests Cervical Spine Special Tests Traction Test Results negative Comments No change in pain with R shoulder AROM w/cervical traction PT-OP-M Strength Start: 01/08/20 17:12 Freq: Status: Active Protocol: Document 03/01/20 08:16 LRN (Rec: 03/01/20 09:35 LRN [id number]) Shoulder Strength Shoulder Manual Muscle Testing Right Comments MMT generally 5/5, without pain. PT-OP-Q Treatments Start: 01/08/20 17:12 Freq: Status: Active Protocol: Document 03/01/20 08:16 LRN (Rec: 03/01/20 09:35 LRN [id number]) Cardio Equipment Upper Body Ergometer (UBE) Duration (Minutes) 10 RPM 70 Seat Position 10 Height 5.5 Other no pain Therapeutic Exercises Supine Exercises R shoulder AROM Supine Exercise Name R shoulder AROM (flex, AB, ER, IR) Reps/Minutes 7' Comments ROM taken Sitting Exercises AB Sitting Exercise Name Active AB: Full arm/Elbow bent Side right Reps/Minutes 10x 2 each Comments Extra time for training. Standing Exercises Shoulder ER Standing Exercise Name Shoulder ER stretch with hand behind head Side bilateral Reps/Minutes 3' x 2\3 different times during therapy Comments ROM taken Manual Therapy Treatment Joint Mobilizations Scapula Joint R Scapulothoracic joint Direction All directions w/o humerus and w/humerus to mob Grade II Reps/Duration 10 Self-Care/Home Management Treatment Education Patient Education Home Exercise Program Activities Self-Care/Home Management Activities Pt instructed in HEP: -R shoulder AB strengthening with progression to thumbs down AB lifts; -ER/IR strengthening in multiple AB positions; -continued consistent use of ice to shoulder. PT-OP-R Modalities Start: 01/08/20 17:12 Freq: Status: Active Protocol: Document 03/01/20 08:16 LRN (Rec: 03/01/20 09:35 LRN [id number]) Ultrasound Therapy Treatment R subacromial shoulder Treatment Duration (minutes) 5 Patient Position Sitting Applicator Size (cm2) 2 Frequency Setting (mHz) 3 Mode Setting Pulsed Duty Cycle 50% Intensity Setting (w/cm2) 1.0 PT-OP-T Assessment and Plan Start: 01/08/20 17:12 Freq: Status: Active Protocol: Document 03/01/20 08:16 LRN (Rec: 03/01/20 09:35 LRN [id number]) Physical Therapy Assessment Goals Three Impairment Decreased R shoulder ROM (AROM : sitting AB 85 deg's;PROM supine ER 45 deg ) Short Term Goal (STG) Improve R shoulder AROM with pt able to put dishes away with mild discomfort. (02/16/20: Normal R shoulder active flexion and IR without pain, normal AB with pain ~90 degs; pt able to put dishes away without pain) STG Duration 02/02/20 (02/16/20: MET GOAL ) Snf Goal (LTG) Improve R shoulder PROM (to supine 70 deg's and IR reaching T6 without pain) with pt able to remove his T- shirts and scratch behind his back with mild difficulty. (02/02/20: Intermittently able to remove T-shirt without pain) LTG Duration 02/08/21 (02/02/20: Improving ) Two Impairment Decreased R shoulder strength pain. Short Term Goal (STG) Improve R shoulder strength 1/ 2 grade, with pt able to lift small objects without pain. (03/01/20: R shoulder is generally 5/5 and pt able to lift objects w/o pain) STG Duration 01/26/20 (03/01/20: MET GOAL) Snf Goal (LTG) Improve R shoulder strength 1 grade with pt able to lie on the R side at night. LTG Duration 02/08/21 (03/01/20: MET GOAL) . One Impairment Pt lacks appropriate self care HEP Short Term Goal (STG) Pt will be independent in a self care HEP. STG Duration 01/19/20 (03/01/20: Progressing) Snf Goal (LTG) Pt will be independent in a self care progressive HEP of R shoulder/scapular stabilization and core strengthening exercises. LTG Duration 04/11/20 Progress Towards Goals Progress Comments Improved R shoulder functional reach behind head (Apley Scratch Test Action 2) improved after JMT from T3 to T4. After Ultrasound, pt was able to perform active shoulder AB without pain arc. Assessment Summary Assessment Improvement as noted above. Pt R shoulder strength is now 5/5 and he has full R shoulder active and passive ROM with tightness at end-range flex and discomfort/painful arc with R shoulder AB (90 deg's) and with horizontal shoulder AD at end-range. Horizontal R shoulder AD is limited to 35 deg's (L is 45 deg's). Was not able to progress to core/R shoulder progressive strengthening program due to painful AB arc (pain level 3/ 10). Physical Therapy Plan Frequency and Duration Frequency of Treatment 1x/Week Plan of Care Start Date 01/12/20 Plan of Care End Date 04/11/20 Next Visit Focus/Plan Next Note Type Progress Note Next Visit Plan Set pt up on HEP of progressive strengthening for core & R shoulder next visit with possible DC to HEP and pt referred back to provider for possible further imaging, or cont 1-2 more weeks with progressive strengthening and HEP and new POC. Pt to increase use of icing at home. Review HEP of (ER/IR strengthening with shoulder in multiple AB positions & add CKC strengthening). Core strengthening exercises). If needed, US for improved R shoulder ROM at end of tx.
--- NOTE | 2020-03-22 09:45 | PT.OTN ---
Current Diagnoses Pain in right shoulder (03/22/20) Postural kyphosis, thoracic region (03/22/20) Muscle weakness (generalized) (03/22/20) Physical Therapy Treatment Note PT-OP-A Visit Information Start: 01/08/20 17:12 Freq: Status: Active Protocol: Document 03/22/20 09:01 SP (Rec: 03/22/20 11:47 SP [id number]) Out-Patient Physical Therapy Visit Information Visit Information Visit Type Treatment Note Visit Start Time 09:01 Visit Stop Time 09:45 Total Visit Minutes 44 Visit Number 10 Number of ONLINE COMMUNITY MANAGER Visits 1 PT-OP-B Current Condition Start: 01/08/20 17:12 Freq: Status: Active Protocol: Document 01/12/20 09:05 LRN (Rec: 01/12/20 09:53 LRN [id number]) Current Condition History of Current Condition Onset Date 6 months ago Current Complaints R shoulder sharp pain with certain movements. History of Current Condition R handed. Woke with R shoulder pain. Has worsened a little for the past few months . Has sharp pain with certain movements and positions of the arms (out to side, and AB upward movement). Had done nothing out of ordinary. Was doing workout that he did at a gym at home but didn't do warm ups. Denies any history of neck or R shoulder injury. Prior Treatments and Tests None Future Testing and Treatments Planned No recheck visit with Arianne Redmond. Developmental History Developmental History Push ups, Pull ups in doorway, without warm up since May. At gym would do the same but a warm up before the weights ( sit in sauna and stretch), then eliptical work out 10'. Treatment Goals Patient/Caregiver Goals Pt goal is to get a routine of ex and strengthening to fix the shoulder. Prior Functional Status Baseline Function- ADL's Independent Baseline Function- Mobility Independent Baseline Function- Other Sometimes woke with stiffness neck/shoulder but nothing lasting. Current Functional Impairments (Reported) Functional Limitations- ADL's Removing T-Shirts, putting dishes away, lifting smallest objects, scratching behind back, Can't lie on the R side at night (can sleep throught the night). Personal Factors Other Personal Factors That May Effect Self exercising at home. Therapy/Recovery PT-OP-C Subjective Start: 01/08/20 17:12 Freq: Status: Active Protocol: Document 03/22/20 09:01 SP (Rec: 03/22/20 11:47 SP [id number]) OP-PT Subjective Patient Comments Patient Comments Pt stated has been lifting heavy boxes helping parents move to [employer] with arms sustained tension in front with good awareness of body mechanics. He stated was conscious of not lifting over head or out to the side with no pain. Patient Reported Progress Improving PT-OP-E Functional Tests Start: 01/08/20 17:12 Freq: Status: Active Protocol: Document 03/01/20 08:16 LRN (Rec: 03/01/20 09:35 LRN [id number]) Functional Tests Apley's Scratch Test Action 2- Left T5 Action 2- Right T3 Action 3- Left T5 Action 3- Right T6 PT-OP-H Neuro Start: 01/08/20 17:12 Freq: Status: Active Protocol: Document 01/12/20 09:05 LRN (Rec: 01/13/20 17:21 LRN [id number]) Sensation Evaluation Gross Sensation Gross Sensation WNL PT-OP-J Posture/Palpation/Skin Start: 01/08/20 17:12 Freq: Status: Active Protocol: Document 01/12/20 09:05 LRN (Rec: 01/13/20 17:21 LRN [id number]) Posture Evaluation Position Standing Evaluation View Posterior, Anterior, Lateral Head/C-Spine Posture Side Bent Right T-Spine Posture Flexible Scoliosis on (L), Increased Kyphosis Scapula Posture (R) Retracted,(R) Depressed PT-OP-K Range of Motion Start: 01/08/20 17:12 Freq: Status: Active Protocol: Document 03/01/20 08:16 LRN (Rec: 03/01/20 09:35 LRN [id number]) Shoulder Goniometric Range of Motion Shoulder Left Passive Testing Position Supine Flexion 180 Abduction 180 Horizontal Adduction 45 External Rotation at 90 degrees 90 Abduction Internal Rotation 90 Comments WNL Right Passive Testing Position Supine Flexion 180 Abduction 180 Horizontal Adduction 35 External Rotation at 90 degrees 90 Abduction Internal Rotation 90 Comments NO PAIN. Pain with Horiz AD in 90 deg's AB start position Right Active Testing Position Sitting Flexion 180 Comments Pain with active AB rated 3/10 . PT-OP-L Special Tests Start: 01/08/20 17:12 Freq: Status: Active Protocol: Document 03/01/20 08:16 LRN (Rec: 03/01/20 09:35 LRN [id number]) Special Tests Cervical Spine Special Tests Traction Test Results negative Comments No change in pain with R shoulder AROM w/cervical traction PT-OP-M Strength Start: 01/08/20 17:12 Freq: Status: Active Protocol: Document 03/01/20 08:16 LRN (Rec: 03/01/20 09:35 LRN [id number]) Shoulder Strength Shoulder Manual Muscle Testing Right Comments MMT generally 5/5, without pain. PT-OP-Q Treatments Start: 01/08/20 17:12 Freq: Status: Active Protocol: Document 03/22/20 09:01 SP (Rec: 03/22/20 11:47 SP [id number]) Cardio Equipment Upper Body Ergometer (UBE) Duration (Minutes) 6 RPM 50 Seat Position 10 Height 5.5 Other no pain 3 min f/b Therapeutic Exercises Standing Exercises HABD w/ ER TB Resistance Tb#1 Reps/Minutes 2x10 Comments good scap stab (has #2 and #3 to progress to) UT, Lev scap Side right Reps/Minutes 30 x2 pec stretch Side right Equipment Used wall Reps/Minutes 30 x2 scaption Tb Resistance 2# DB x10, Tb #1 2x10 Comments occasional cuing for scap stab and decreaese neck tension R shld extension Standing Exercise Name pull down Side right Resistance Tb #3 Reps/Minutes 2x10 R shld row Resistance TB #3 Reps/Minutes 2x10 R shld IR Resistance Tb #2 Reps/Minutes 2x10 R shld ER Resistance Tb #2 Reps/Minutes 2x10 PT-OP-R Modalities Start: 01/08/20 17:12 Freq: Status: Active Protocol: Document 03/01/20 08:16 LRN (Rec: 03/01/20 09:35 LRN [id number]) Ultrasound Therapy Treatment R subacromial shoulder Treatment Duration (minutes) 5 Patient Position Sitting Applicator Size (cm2) 2 Frequency Setting (mHz) 3 Mode Setting Pulsed Duty Cycle 50% Intensity Setting (w/cm2) 1.0 PT-OP-T Assessment and Plan Start: 01/08/20 17:12 Freq: Status: Active Protocol: Document 03/22/20 09:01 SP (Rec: 03/22/20 11:47 SP [id number]) Physical Therapy Assessment Goals Three Impairment Decreased R shoulder ROM (AROM : sitting AB 85 deg's;PROM supine ER 45 deg ) Short Term Goal (STG) Improve R shoulder AROM with pt able to put dishes away with mild discomfort. (02/16/20: Normal R shoulder active flexion and IR without pain, normal AB with pain ~90 degs; pt able to put dishes away without pain) STG Duration 02/02/20 (02/16/20: MET GOAL ) Magnetic Testing Technician Goal (LTG) Improve R shoulder PROM (to supine 70 deg's and IR reaching T6 without pain) with pt able to remove his T- shirts and scratch behind his back with mild difficulty. (02/02/20: Intermittently able to remove T-shirt without pain) LTG Duration 02/08/21 (02/02/20: Improving ) Two Impairment Decreased R shoulder strength pain. Short Term Goal (STG) Improve R shoulder strength 1/ 2 grade, with pt able to lift small objects without pain. (03/01/20: R shoulder is generally 5/5 and pt able to lift objects w/o pain) STG Duration 01/26/20 (03/01/20: MET GOAL) Magnetic Testing Technician Goal (LTG) Improve R shoulder strength 1 grade with pt able to lie on the R side at night. LTG Duration 02/08/21 (03/01/20: MET GOAL) . One Impairment Pt lacks appropriate self care HEP Short Term Goal (STG) Pt will be independent in a self care HEP. STG Duration 01/19/20 (03/01/20: Progressing) Magnetic Testing Technician Goal (LTG) Pt will be independent in a self care progressive HEP of R shoulder/scapular stabilization and core strengthening exercises. LTG Duration 04/11/20 Progress Towards Goals Progress Towards Goals Progressing Toward Goals Progress Comments Pt has improved AROM in standing, having no pain and able to lift heavy object in close chain positions with no adverse affects. Assessment Summary Assessment Pt is making gains in strength close chain with good response to helping parents move and carrying heavy boxes without increase pain. Intiated Tb scaption, HABD with shld ER and resistance assisted abd w/ ER on R shld to progress into open chain stretch ROM with strengthening and good response. Occasional cuing for neutral CS and arm positioning during abd/ ER with good understanding. Physical Therapy Plan Frequency and Duration Frequency of Treatment 1x/Week Plan of Care Start Date 01/12/20 Plan of Care End Date 04/11/20 Therapeutic Interventions Therapeutic Interventions Home Exercise Program,Joint Mobilizations,Manual Therapy, Neuromuscular Re-education, Patient/Caregiver Education, Self-Care/Home Management,Soft Tissue Mobilization,Taping, Therapeutic Exercises Modalities Cold Pack/Ice Massage, Ultrasound Next Visit Focus/Plan Next Note Type Progress Note Next Visit Plan Assess response to last tx: see assessment added. Next tx check ROM, HEP and potential DC to due moving end of Mar. See previous POC Plan: HEP of progressive strengthening for core & R shoulder next visit with possible DC to HEP and pt referred back to provider for possible further imaging, or cont 1-2 more weeks with progressive strengthening and HEP and new POC. Pt to increase use of icing at home. Review HEP of (ER/IR strengthening with shoulder in multiple AB positions & add CKC strengthening). Core strengthening exercises). If needed, US for improved R shoulder ROM at end of tx.
--- NOTE | 2020-03-30 16:28 | PT.OTN ---
Current Diagnoses Pain in right shoulder (03/30/20) Postural kyphosis, thoracic region (03/30/20) Muscle weakness (generalized) (03/30/20) Physical Therapy Treatment Note PT-OP-A Visit Information Start: 01/08/20 17:12 Freq: Status: Active Protocol: Document 03/30/20 15:05 LRN (Rec: 03/30/20 16:14 LRN [id number]) Out-Patient Physical Therapy Visit Information Visit Information Visit Type Treatment Note Visit Start Time 15:05 Visit Stop Time 15:49 Total Visit Minutes 44 Visit Number 11 Evaluation Information Evaluation Date 02/16/20 Precautions Precautions None PT-OP-B Current Condition Start: 01/08/20 17:12 Freq: Status: Active Protocol: Document 01/12/20 09:05 LRN (Rec: 01/12/20 09:53 LRN [id number]) Current Condition History of Current Condition Onset Date 6 months ago Current Complaints R shoulder sharp pain with certain movements. History of Current Condition R handed. Woke with R shoulder pain. Has worsened a little for the past few months . Has sharp pain with certain movements and positions of the arms (out to side, and AB upward movement). Had done nothing out of ordinary. Was doing workout that he did at a gym at home but didn't do warm ups. Denies any history of neck or R shoulder injury. Prior Treatments and Tests None Future Testing and Treatments Planned No recheck visit with Arianne Redmond. Developmental History Developmental History Push ups, Pull ups in doorway, without warm up since May. At gym would do the same but a warm up before the weights ( sit in sauna and stretch), then eliptical work out 10'. Treatment Goals Patient/Caregiver Goals Pt goal is to get a routine of ex and strengthening to fix the shoulder. Prior Functional Status Baseline Function- ADL's Independent Baseline Function- Mobility Independent Baseline Function- Other Sometimes woke with stiffness neck/shoulder but nothing lasting. Current Functional Impairments (Reported) Functional Limitations- ADL's Removing T-Shirts, putting dishes away, lifting smallest objects, scratching behind back, Can't lie on the R side at night (can sleep throught the night). Personal Factors Other Personal Factors That May Effect Self exercising at home. Therapy/Recovery PT-OP-C Subjective Start: 01/08/20 17:12 Freq: Status: Active Protocol: Document 03/30/20 15:05 LRN (Rec: 03/30/20 16:14 LRN [id number]) OP-PT Subjective Patient Comments Patient Comments States he can still have pain if he pushes his R arm overhead or out to the side then he can feel the pain. Has been doing more icing and has found it helpful. Overall feels 80-85% better. Able to remove T-shirts without pain Patient Questionnaires Quick Dash- Upper Extremity Quick Dash UE Score 6.81 Quick Dash UE Impairment 1 to 19% Impaired (Score 1-19) PT-OP-E Functional Tests Start: 01/08/20 17:12 Freq: Status: Active Protocol: Document 03/30/20 15:05 LRN (Rec: 03/30/20 16:27 LRN [id number]) Functional Tests Apley's Scratch Test Action 2- Left T5 Action 2- Right T3 Action 3- Left T5 Action 3- Right T5 PT-OP-H Neuro Start: 01/08/20 17:12 Freq: Status: Active Protocol: Document 01/12/20 09:05 LRN (Rec: 01/13/20 17:21 LRN [id number]) Sensation Evaluation Gross Sensation Gross Sensation WNL PT-OP-J Posture/Palpation/Skin Start: 01/08/20 17:12 Freq: Status: Active Protocol: Document 01/12/20 09:05 LRN (Rec: 01/13/20 17:21 LRN [id number]) Posture Evaluation Position Standing Evaluation View Posterior, Anterior, Lateral Head/C-Spine Posture Side Bent Right T-Spine Posture Flexible Scoliosis on (L), Increased Kyphosis Scapula Posture (R) Retracted,(R) Depressed PT-OP-K Range of Motion Start: 01/08/20 17:12 Freq: Status: Active Protocol: Document 03/30/20 15:05 LRN (Rec: 03/30/20 16:14 LRN [id number]) Shoulder Goniometric Range of Motion Shoulder Left Passive Testing Position Supine Flexion 180 Abduction 180 Horizontal Adduction 56 External Rotation at 90 degrees 90 Abduction Internal Rotation 90 Comments WNL Right Passive Testing Position Supine Flexion 180 Abduction 180 Horizontal Adduction 65 External Rotation at 90 degrees 90 Abduction Internal Rotation 90 Right Active Testing Position Sitting Flexion 180 Abduction 180 PT-OP-L Special Tests Start: 01/08/20 17:12 Freq: Status: Active Protocol: Document 03/30/20 15:05 LRN (Rec: 03/30/20 16:14 LRN [id number]) Special Tests Shoulder Special Tests Empty Can Test Results + right Comments Subacromial pain PT-OP-M Strength Start: 01/08/20 17:12 Freq: Status: Active Protocol: Document 03/30/20 15:05 LRN (Rec: 03/30/20 16:14 LRN [id number]) Shoulder Strength Shoulder Manual Muscle Testing Left Comments generally 5/5 Right Flexion 5 Normal Extension 5 Normal Abduction (C5) 4+ Good+ Adduction 5 Normal External Rotation 5 Normal Internal Rotation 4+ Good+ Horizontal Abduction 5 Normal Horizontal Adduction 5 Normal PT-OP-Q Treatments Start: 01/08/20 17:12 Freq: Status: Active Protocol: Document 03/30/20 15:05 LRN (Rec: 03/30/20 16:14 LRN [id number]) Cardio Equipment Upper Body Ergometer (UBE) Duration (Minutes) 6 RPM 50 Seat Position 10 Height 5.5 Therapeutic Exercises Supine Exercises R shoulder AROM Supine Exercise Name R shoulder AROM (flex, AB, ER, IR) Reps/Minutes 7' Comments ROM taken Sitting Exercises Shoulder AROM Sitting Exercise Name Flex, AB, reaching behind head & behind back Comments ROM taken Standing Exercises HABD w/ ER TB Standing Exercise Name Reviewed Resistance Tb#1 Reps/Minutes 2x10 Comments good scap stab (has #2 and #3 to progress to) R shld IR Resistance Tb #3 Reps/Minutes 2x10 R shld ER Resistance Tb #2 Reps/Minutes 2x10 Lat Pull down Standing Exercise Name Lat Pull down Side bilateral Equipment Used Level 5 Comments cued ribcage elevation, scap stab concentric/ eccentric directioning, slow Self-Care/Home Management Treatment Education Other Education Educated pt in exercise progression with resistance and educated pt in precautions of progression to prevent injury. Activities Self-Care/Home Management Activities Reviewed home exercises to focus on: Lat pull down, shoulder ER/IR in various AB positions. Issued Lev 3, 4 TBand for pt to progress his HEP with. PT-OP-R Modalities Start: 01/08/20 17:12 Freq: Status: Active Protocol: Document 03/01/20 08:16 LRN (Rec: 03/01/20 09:35 LRN [id number]) Ultrasound Therapy Treatment R subacromial shoulder Treatment Duration (minutes) 5 Patient Position Sitting Applicator Size (cm2) 2 Frequency Setting (mHz) 3 Mode Setting Pulsed Duty Cycle 50% Intensity Setting (w/cm2) 1.0 PT-OP-T Assessment and Plan Start: 01/08/20 17:12 Freq: Status: Active Protocol: Document 03/30/20 15:05 LRN (Rec: 03/30/20 16:14 LRN [id number]) Physical Therapy Assessment Goals Three Impairment Decreased R shoulder ROM (AROM : sitting AB 85 deg's;PROM supine ER 45 deg ) Short Term Goal (STG) Improve R shoulder AROM with pt able to put dishes away with mild discomfort. (02/16/20: Normal R shoulder active flexion and IR without pain, normal AB with pain ~90 degs; pt able to put dishes away without pain) STG Duration 02/02/20 (02/16/20: MET GOAL ) Snf Goal (LTG) Improve R shoulder PROM (to supine 70 deg's and IR reaching T6 without pain) with pt able to remove his T- shirts and scratch behind his back with mild difficulty. (02/02/20: Able to remove T- shirt without pain, & can scratch behind the back, sometimes pain if trying to reach as far as L arm) LTG Duration 02/08/21 (03/30/20: MET GOAL) Two Impairment Decreased R shoulder strength pain. Short Term Goal (STG) Improve R shoulder strength 1/ 2 grade, with pt able to lift small objects without pain. (03/01/20: R shoulder is generally 5/5 and pt able to lift objects w/o pain) STG Duration 01/26/20 (03/01/20: MET GOAL) Snf Goal (LTG) Improve R shoulder strength 1 grade with pt able to lie on the R side at night. LTG Duration 02/08/21 (03/01/20: MET GOAL) . One Impairment Pt lacks appropriate self care HEP Short Term Goal (STG) Pt will be independent in a self care HEP. STG Duration 01/19/20 (03/30/20: MET GOAL) Snf Goal (LTG) Pt will be independent in a self care progressive HEP of R shoulder/scapular stabilization and core strengthening exercises. LTG Duration 04/11/20 (03/30/20: MET GOAL) Progress Towards Goals Progress Comments Goals met. Assessment Summary Assessment The pt presents today with normal R shoulder ROM and normal strength except for shoulder AB and ER. He has some weakness although no pain . Pt felt pain could insue if greater resistance were applied to his R arm. The pt shows good scapular stabilization when concentrating on exercises, otherwise he can demonstrate dysfunctional scapulohumeral rhythm. The pt shows possible dysfunction of the R supraspinatus with a +Empty Can Test. The pt appears to have a good understanding of his limitations and his home program to focus on; therefore he is ready for discharge to a self care HEP. Pt may need therapy in the future for progresson onto a gym program. Pt shows functional improvement per UE QuickDASH score of 6.81 = 1<20% impairment (was 31.81 = 20<40% impairment). Physical Therapy Plan Frequency and Duration Frequency of Treatment 1x/Week Plan of Care Start Date 01/12/20 Plan of Care End Date 04/11/20 Discharge Physical Therapy Discharge Reasons Goals Met Discharge Comments The pt has pain in the L shoulder with excessive ROM of ER/AB (reaching behind head/ back) and with lifting a heavy weight out to the side or overhead. Therapy to progress the pt onto a gym program, of proper shoulder care, when exercise gyms reopen would be appropriate.
== END 2020-04-27 09:19 ==
LOC: PHYS 15:00
PROVIDERS: PCP Family Medicine; Referring Provider Nurse Practitioner Family; Visit Provider Nurse Practitioner Family
DX: M25.511 Pain in right shoulder (principal); M62.81 Muscle weakness (generalized); M40.04 Postural kyphosis, thoracic region
CPT/HCPCS: 97035; 97110; 97140; 97161; 97535